=== PATIENT | male | born 1950 | race Caucasian/White ===

== ENCOUNTER → 2018-12-24 | Outpatient (CLI) | payer MEDICARE, BC ==
[2018-12-24 08:57] LABS: HEMATOCRIT 47 % (40-54); HEMOGLOBIN 15.7 G/DL (13.3-17.7); MEAN CORPUSCULAR HEMOGLOBIN 30 PG (25-34); MEAN CORPUSCULAR HGB CONC 34 G/DL (32-36); MEAN CORPUSCULAR VOLUME 90 FL (80-99); WHITE BLOOD COUNT 7.7 10^3/uL (4.3-11.0)
[2018-12-24 08:58] LABS: BASOPHILS % (AUTO) 1 % (0-10); EOSINOPHILS # (AUTO) 0.2 10^3/uL (0.0-0.3); EOSINOPHILS % (AUTO) 2 % (0-10); LYMPHOCYTES # (AUTO) 2.5 X 10^3 (1.0-4.0); LYMPHOCYTES % (AUTO) 32 % (12-44); MEAN PLATELET VOLUME 9.8 FL (7.4-10.4); MONOCYTES # (AUTO) 0.7 X 10^3 (0.0-1.0); MONOCYTES % (AUTO) 9 % (0-12); NEUTROPHILS # (AUTO) 4.3 X 10^3 (1.8-7.8); NEUTROPHILS % (AUTO) 56 % (42-75); PLATELET COUNT 241 10^3/uL (130-400); RED CELL DISTRIBUTION WIDTH 13.5 % (10.0-14.5)
[2018-12-24 09:50] LABS: POTASSIUM 3.4 MMOL/L (3.6-5.0)
[2018-12-24 09:51] LABS: BILIRUBIN,TOTAL 1.1 MG/DL (0.1-1.0); CALCIUM 9.6 MG/DL (8.5-10.1); CREATININE SERUM 1.49 MG/DL (0.60-1.30); TOTAL PROTEIN 7.2 GM/DL (6.4-8.2)
[2018-12-24 09:52] LABS: ALBUMIN 4.2 GM/DL (3.2-4.5)
[2018-12-24 15:31] LABS: CHOLESTEROL 212 MG/DL (< 200); HDL CHOLESTEROL 34 MG/DL (40-60); TRIGLYCERIDES 172 MG/DL (<150); VLDL CHOLESTEROL 34 MG/DL (5-40)
== END ==
LOC: LAB FS 08:07
PROVIDERS: ATTEND Family Medicine
DX: I12.9 Hypertensive chronic kidney disease with stage 1 through stage 4 chronic kidney disease, or unspecified chronic kidney disease (principal); N18.9 Chronic kidney disease, unspecified; E78.5 Hyperlipidemia, unspecified; R73.9 Hyperglycemia, unspecified
CPT/HCPCS: 36415; 80053; 80061; 83036; 85025

== ENCOUNTER → 2019-06-25 | Outpatient (CLI) | payer MEDICARE, BC ==
[~2019-06-25] MED LIST: ATOR40TA PO; HCT25T PO; LSRT50T PO; POTA10CA43 PO
[2019-06-25 16:31] LABS: HEMOGLOBIN 16.3 G/DL (13.3-17.7); MEAN PLATELET VOLUME 10.2 FL (7.4-10.4); RED CELL DISTRIBUTION WIDTH 14.2 % (10.0-14.5); WHITE BLOOD COUNT 7.6 10^3/uL (4.3-11.0)
[2019-06-25 16:32] LABS: BILIRUBIN,TOTAL 1.1 MG/DL (0.1-1.0); CALCIUM 9.7 MG/DL (8.5-10.1); CREATININE SERUM 1.55 MG/DL (0.60-1.30); POTASSIUM 3.1 MMOL/L (3.6-5.0); TOTAL PROTEIN 7.5 GM/DL (6.4-8.2)
[2019-06-25 16:33] LABS: ALBUMIN 4.5 GM/DL (3.2-4.5)
[2019-06-26 08:39] LABS: CHOLESTEROL 198 MG/DL (< 200); HDL CHOLESTEROL 38 MG/DL (40-60); TRIGLYCERIDES 190 MG/DL (<150); VLDL CHOLESTEROL 38 MG/DL (5-40)
== END ==
LOC: LAB FS 09:12
PROVIDERS: ATTEND Family Medicine
DX: I12.9 Hypertensive chronic kidney disease with stage 1 through stage 4 chronic kidney disease, or unspecified chronic kidney disease (principal); N18.3 Chronic kidney disease, stage 3 (moderate); E78.5 Hyperlipidemia, unspecified; R73.9 Hyperglycemia, unspecified
CPT/HCPCS: 36415; 80053; 80061; 83036; 85027

== ENCOUNTER → 2021-09-28 | Outpatient (CLI) | payer BC, MEDICARE | LOC: CARD 14:00 | PROVIDERS: ATTEND Family Medicine | DX: I08.0 Rheumatic disorders of both mitral and aortic valves (principal) | CPT/HCPCS: 93306 ==

== ENCOUNTER → 2021-10-06 | Outpatient (CLI) | payer MEDICARE ==
[2021-10-06 10:04] VITALS: BP 158/89
--- NOTE | 2021-10-06 11:30 | Cardiology Stress Test Report ---
Stress Test Report Date of Procedure/Referring: Date of Procedure: Oct 06, 2021 PCP Luis Nance Jr, MD Admitting Physician Thiago Dominguez MD Indications: Chest pain. Baseline Blood Pressure: Blood Pressure Systolic: 158 Blood Pressure Diastolic: 89 Baseline EKG: Baseline EKG: Sinus rhythm with occasional premature ventricular complexes. Summary/Conclusion: PROCEDURE: The patient was exercised for a total of 6 minutes and 57 seconds of the standard Soren protocol achieving a maximum MET level of 8.3. The resting heart rate was 66 bpm and the peak heart rate was 147 bpm, which represents 98% of the maximum predicted heart rate. The resting blood pressure was 156/89 mmHg and the peak blood pressure was 207/81 mmHg. This represents a normal heart rate and a hypertensive blood pressure response to exercise. The test was stopped due to fatigue. There was no exercise-induced chest discomfort. There were isolated premature ventricular complexes throughout the test. There were no significant stress-induced electrocardiogram changes. The patient exhibited good exercise capacity for age. IMPRESSION: 1. Normal heart rate and blood pressure response to exercise. 2. There was no exercise-induced chest discomfort. 3. There were isolated premature ventricular complexes throughout the duration of the test. 4. There were no significant stress induced electrocardiogram changes. 5. The patient exhibited good exercise capacity for age at 6 minutes and 57 seconds of the Soren protocol. 6. This is a negative exercise treadmill test representing low risk for future cardiac ischemic events. Certain portions of this document may have been dictated utilizing voice recognition technology. Inherent to this technology, typographical and grammatical errors may exist. As much as I am diligent to identify and correct these mistakes, some errors may remain in the document. LUIS NANCE JR, MD Oct 06, 2021 11:30
== END ==
LOC: CARD 10:00
PROVIDERS: ATTEND Internal Medicine Cardiovascular Disease
DX: R07.9 Chest pain, unspecified (principal)
CPT/HCPCS: 93017

== ENCOUNTER 2022-12-15 01:26 | Emergency (ER) | payer MEDICARE ==
--- NOTE | 2022-12-15 01:57 | ED Fall/Injury ---
General Chief Complaint: Laceration Stated Complaint: FELL,HIT HEAD Nursing Triage Note: Pt states he rolled out of bed tonight and hit his head. Pt denies loc. Pt presents with a small lac to the right side of his head Source: patient Exam Limitations: no limitations History of Present Illness Date Seen by Provider: Dec 15, 2022 Time Seen by Provider: 01:31 Initial Comments 72-year-old male with past medical history of paroxysmal A-fib only on aspirin and diltiazem coming in after he was an active sleeper, rolled out of bed, hit the right lateral posterior aspect of his head on something he is unsure of on the way down. It immediately woke him up and he noticed bleeding and a laceration to his scalp. Has a very mild headache. Otherwise denies any other acute complaints including any neck pain or back pain. Has been ambulatory since the incident. Last tetanus shot less than 5 years ago. Allergies and Home Medications Allergies Coded Allergies: No Known Drug Allergies (Unverified , 08/16/10) Patient Home Medication List Home Medication List Reviewed: Yes Atorvastatin Calcium (Lipitor 40MG) 40 Mg Tablet, 1 EACH PO HS, (Reported) Entered as Reported by: LORENA ABDUL on 08/16/10 162 Hydrochlorothiazide (Hctz) 25 Mg Tab, 25 MG PO DAILY, (Reported) Entered as Reported by: LORENA ABDUL on 08/16/101621 Losartan Potassium (Cozaar) 50 Mg Tab, 100 MG PO DAILY, (Reported) Entered as Reported by: LORENA ABDUL on 08/16/10 162 Potassium Chloride (Potassium Chloride 10 Meq Cap) 10 Meq Capsule.sa, 1 EACH PO DAILY WITH FOOD, (Reported) Entered as Reported by: LORENA ABDUL on 08/16/101621 Review of Systems Review of Systems Constitutional: No fever Eyes: No Symptoms Reported Ears, Nose, Mouth, Throat: no symptoms reported Respiratory: no symptoms reported Cardiovascular: no symptoms reported Gastrointestinal: no symptoms reported Genitourinary: no symptoms reported Musculoskeletal: no symptoms reported Skin: see HPI Psychiatric/Neurological: No Symptoms Reported All Other Systems Reviewed Negative Unless Noted: Yes Past Khzkqfg-Hzoecp-Gzlplm Hx Patient Social History Tobacco Use?: No Use of E-Cig and/or Vaping dev: No Substance use?: No Alcohol Use?: No Pt feels they are or have been: No Past Medical History Reproductive Disorders: No Physical Exam Vital Signs Vital Signs - First Documented 12/15/22 01:29 Temp 36.6 Pulse 72 Resp 16 B/P (MAP) 165/106 (125) Pulse Ox 96 O2 Delivery Room Air Capillary Refill : Less Than 3 Seconds Height, Weight, BMI Height: '" Weight: lbs. oz. kg; BMI Method: General Appearance: WD/WN, no apparent distress HEENT: PERRL/EOMI, pharynx normal, other (2 cm laceration to the right lateral occiput that is superficial) Neck: non-tender, full range of motion, supple, normal inspection Cardiovascular: regular rate, rhythm, no edema, no murmur Respiratory: chest non-tender, lungs clear, normal breath sounds, no respiratory distress, no accessory muscle use Gastrointestinal: normal bowel sounds, non tender, soft; No distended, No guarding, No rebound Back: normal inspection, no vertebral tenderness Extremities: normal range of motion, non-tender, normal inspection, no pedal edema, no calf tenderness, normal capillary refill Neurologic/Psychiatric: no motor/sensory deficits, alert, normal mood/affect, oriented x 3 Skin: normal color, warm/dry Lymphatic: no adenopathy [place] Coma Score Best Eye Response: (4) Open Spontaneously Best Verbal Response: (5) Oriented Best Motor Response: (6) Obeys Commands Procedures/Interventions Wound Location: Scalp Other Wound Location right lateral posterior Wound Length (cm): 2 Wound's Depth, Shape: superficial Wound Explored: clean Irrigated w/ Saline (ccs): 400 Other Closure Supply: Wound Adhesive Progress Hair apposition technique utilized with Dermabond with good wound apposition. Patient tolerated the procedure well. Progress/Results/Core Measures Results/Orders My Orders Orders - REJI JUÁREZ MD Ct Head Wo (12/15/22 01:51) Vital Signs/I&O 12/15/22 12/15/22 01:29 02:14 Temp 36.6 36.6 Pulse 72 72 Resp 16 16 B/P (MAP) 165/106 (125) 165/106 Pulse Ox 96 96 O2 Delivery Room Air Room Air 2 Blood Pressure Mean: 125 Progress Progress Note : Progress Note 72-year-old male presenting after rolling out of bed and hitting his head with a small laceration to his occiput. ABCs were intact, vital signs stable, GCS 15, Tdap up-to-date on arrival. The wound was cleaned and closed with hair apposition technique and Dermabond. CT head ordered and interpreted by me showing no obvious skull fracture and no obvious intracranial hemorrhage. He is not having any cervical spine tenderness, no pain anywhere else, normal range of motion of neck, no weakness or numbness, and he has been ambulatory since the incident. I believe he is otherwise stable for discharge with outpatient follow-up. He was sent home with strict return precautions. Of note, the patient did not want to wait for the formal CT head results from stat rad. I discussed that I am not seeing any obvious bleeding or concerns, but that I would recommend waiting for their read. He states he wants to go home right now and wants to be called with the results. I discussed that he could have a brain bleed that is subtle but I missed. I discussed if this were the case, I would want him to come back to be admitted to a trauma facility to have a neurosurgical consult. He is agreeable to this. He does have capacity at this time to make this decision based on my evaluation and is having no symptoms at this time such as headache, no confusion, no neuro changes whatsoever. He is able to verbalize the risk and benefits of this decision. Diagnostic Imaging Diagonstic Imaging: CT (head) Departure Impression Primary Impression: Scalp laceration Qualified Codes: S01.01XA - Laceration without foreign body of scalp, initial encounter Disposition: 01 HOME, SELF-CARE Condition: Stable Departure-Patient Inst. Decision time for Depature: 02:16 Referrals: CARLA OCHOA MD (PCP/Family) Primary Care Physician Patient Instructions: Laceration Repair With Glue ED Add. Discharge Instructions: Do not let the area of the laceration get wet for the next 24 hours. After that water can run over it briefly in the shower but do not scrub it. After 1 week you can return to normal activity and you can allow the glue to naturally fall out of your hair. If it has not come out naturally and 10 days then you can scrub at it harder to help get it out. Take Tylenol as needed for headache. We will call you with the results to the CT head. If they see any concerning findings, although very unlikely, we would need you to come back to the ER. REJI JUÁREZ MD Dec 15, 2022 01:56
[2022-12-15 02:14] VITALS: BP 165/106
--- NOTE | 2022-12-15 03:29 | Diagnostic Imaging Report ---
PROCEDURE: CT head without contrast. TECHNIQUE: Multiple contiguous axial images were obtained through the brain without the use of intravenous contrast. Auto Exposure Controls were utilized during the CT exam to meet ALARA standards for radiation dose reduction. INDICATION: Head injury from a fall The ventricles are normal in size, shape and position. There are no masses or hemorrhages. There are no extra-axial fluid collections. There are no skull fractures seen. Paranasal sinuses are clear. IMPRESSION: Negative CT head I agree with preliminary interpretation. Dictated by: Dictated on workstation # [id number]
== END 2022-12-15 02:17 | disposition home or self-care (01) ==
LOC: EDUNIT# 01:26 → ER FS 01:27
DX: S01.01XA Laceration without foreign body of scalp, initial encounter (principal); R40.2362 Coma scale, best motor response, obeys commands, at arrival to emergency department; R40.2142 Coma scale, eyes open, spontaneous, at arrival to emergency department; R40.2252 Coma scale, best verbal response, oriented, at arrival to emergency department; I48.0 Paroxysmal atrial fibrillation; Z79.82 Long term (current) use of aspirin; Z79.899 Other long term (current) drug therapy; Z28.310 Unvaccinated for COVID-19; W06.XXXA Fall from bed, initial encounter; W22.8XXA Striking against or struck by other objects, initial encounter
CPT/HCPCS: 70450

== ENCOUNTER 2022-12-18 11:58 | Emergency (ER) | payer MEDICARE ==
[~2022-12-18] VITALS: Ht 168 cm; Wt 104.0 kg
--- NOTE | 2022-12-18 12:22 | ED General ---
General Chief Complaint: Respiratory Problems Stated Complaint: HIGH BLOOD PRESSURE | AFIB Source of Information: Patient Exam Limitations: No Limitations History of Present Illness Date Seen by Provider: Dec 18, 2022 Time Seen by Provider: 11:40 Initial Comments 72yoM with PMH of pAfib on diltiazem (diagnosed recently) coming in due to 2-3 days of chest pain and SOB. Patient was diagnosed with A-fib a couple weeks ago, started on diltiazem and daily aspirin. He has been more symptomatic with it, feels his heart racing sometimes, sometimes having chest discomfort and shortness of breath. This seems to really come and go intermittently. Denies any fever, weakness, numbness, headache, vision changes, or any other concerns. Has taken all of his medicines today including his baby aspirin. Denies any prior history of DVT or PE. Denies any prior CAD. Allergies and Home Medications Allergies Coded Allergies: No Known Drug Allergies (Unverified , 08/16/10) Patient Home Medication List Home Medication List Reviewed: Yes Atorvastatin Calcium (Lipitor 40MG) 40 Mg Tablet, 1 EACH PO HS, (Reported) Entered as Reported by: LORENA ABDUL on 08/16/101621 Hydrochlorothiazide (Hctz) 25 Mg Tab, 25 MG PO DAILY, (Reported) Entered as Reported by: LORENA ABDUL on 08/16/10 162 Losartan Potassium (Cozaar) 50 Mg Tab, 100 MG PO DAILY, (Reported) Entered as Reported by: LORENA ABDUL on 08/16/10 162 Potassium Chloride (Potassium Chloride 10 Meq Cap) 10 Meq Capsule.sa, 1 EACH PO DAILY WITH FOOD, (Reported) Entered as Reported by: LORENA ABDUL on 08/16/101621 Review of Systems Review of Systems Constitutional: No fever EENTM: no symptoms reported Respiratory: see HPI Cardiovascular: see HPI Gastrointestinal: no symptoms reported Genitourinary: no symptoms reported Musculoskeletal: no symptoms reported Skin: no symptoms reported Psychiatric/Neurological: No Symptoms Reported Hematologic/Lymphatic: No Symptoms Reported Immunological/Allergic: no symptoms reported All Other Systems Reviewed Negative Unless Noted: Yes Past Vyhemvs-Rkhkmq-Wwcjxh Hx Patient Social History Tobacco Use?: No Past Medical History Surgeries: No Reproductive Disorders: No Physical Exam Vital Signs Vital Signs - First Documented 12/18/22 12:04 Temp 36.2 Pulse 111 Resp 18 B/P (MAP) 180/141 (154) Pulse Ox 97 O2 Delivery Room Air Capillary Refill : Height, Weight, BMI Height: '" Weight: lbs. oz. kg; BMI Method: General Appearance: No Apparent Distress, WD/WN Eyes: Bilateral Eye Normal Inspection HEENT: PERRL/EOMI, Normal ENT Inspection, Pharynx Normal Neck: Full Range of Motion, Normal Inspection, Non Tender, Supple Respiratory: Chest Non Tender, Lungs Clear, Normal Breath Sounds, No Accessory Muscle Use, No Respiratory Distress Cardiovascular: No Edema, Normal Peripheral Pulses, Irregularly Irregular, Tachycardia Gastrointestinal: Normal Bowel Sounds, Non Tender, Soft; No Distended, No Guarding Back: Normal Inspection, No CVA Tenderness Extremity: Normal Capillary Refill, Normal Inspection, Normal Range of Motion, Non Tender, No Calf Tenderness, No Pedal Edema Neurologic/Psychiatric: Alert, No Motor/Sensory Deficits, Normal Mood/Affect Skin: Normal Color, Warm/Dry Lymphatic: No Adenopathy Progress/Results/Core Measures Suspected Sepsis SIRS Temperature: Pulse: Respiratory Rate: Laboratory Tests 12/18/22 12:33: White Blood Count 9.8 Blood Pressure / Mean: Laboratory Tests 12/18/22 12:33: Creatinine 1.52H, INR Comment 1.0, Platelet Count 229, Total Bilirubin 1.8H Results/Orders Lab Results Laboratory Tests Test 12/18/22 12:33 Range/Units White Blood Count 9.8 4.3-11.0 10^3/uL Red Blood Count 5.88 H 4.30-5.52 10^6/uL Hemoglobin 17.9 H 13.3-17.7 g/dL Hematocrit 52 40-54 % Mean Corpuscular Volume 89 80-99 fL Mean Corpuscular Hemoglobin 30 25-34 pg Mean Corpuscular Hemoglobin Concent 34 32-36 g/dL Red Cell Distribution Width 13.5 10.0-14.5 % Platelet Count 229 130-400 10^3/uL Mean Platelet Volume 10.0 9.0-12.2 fL Immature Granulocyte % (Auto) 0 % Neutrophils (%) (Auto) 71 42-75 % Lymphocytes (%) (Auto) 18 12-44 % Monocytes (%) (Auto) 9 0-12 % Eosinophils (%) (Auto) 1 0-10 % Basophils (%) (Auto) 0 0-10 % Neutrophils # (Auto) 7.0 1.8-7.8 10^3/uL Lymphocytes # (Auto) 1.7 1.0-4.0 10^3/uL Monocytes # (Auto) 0.9 0.0-1.0 10^3/uL Eosinophils # (Auto) 0.1 0.0-0.3 10^3/uL Basophils # (Auto) 0.0 0.0-0.1 10^3/uL Immature Granulocyte # (Auto) 0.0 0.0-0.1 10^3/uL Prothrombin Time 13.3 12.2-14.7 SEC INR Comment 1.0 0.8-1.4 Activated Partial Thromboplast Time 30 24-35 SEC D-Dimer 0.29 0.00-0.49 UG/ML Sodium Level 138 135-145 MMOL/L Potassium Level 3.7 3.6-5.0 MMOL/L Chloride Level 106 98-107 MMOL/L Carbon Dioxide Level 22 21-32 MMOL/L Anion Gap 10 5-14 MMOL/L Blood Urea Nitrogen 18 7-18 MG/DL Creatinine 1.52 H 0.60-1.30 MG/DL Estimat Glomerular Filtration Rate 49 BUN/Creatinine Ratio 12 Glucose Level 101 70-105 MG/DL Calcium Level 9.4 8.5-10.1 MG/DL Corrected Calcium 9.2 8.5-10.1 MG/DL Magnesium Level 2.3 1.6-2.4 MG/DL Total Bilirubin 1.8 H 0.1-1.0 MG/DL Aspartate Amino Transf (AST/SGOT) 28 5-34 U/L Alanine Aminotransferase (ALT/SGPT) 42 0-55 U/L Alkaline Phosphatase 109 40-136 U/L Troponin I < 0.028 <0.028 NG/ML B-Type Natriuretic Peptide 74.0 <100.0 PG/ML Total Protein 7.6 6.4-8.2 GM/DL Albumin 4.2 3.2-4.5 GM/DL Lipase 27 8-78 U/L My Orders Orders - REJI JUÁREZ MD Cbc With Automated Diff (12/18/22 12:30) Magnesium (12/18/22 12:30) Chest 1 View, Ap/Pa Only (12/18/22 12:30) Ekg Tracing (12/18/22 12:30) Comprehensive Metabolic Panel (12/18/22 12:30) Protime With Inr (12/18/22 12:30) Partial Thromboplastin Time (12/18/22 12:30) O2 (12/18/22 12:30) Monitor-Rhythm Ecg Trace Only (12/18/22 12:30) Ed Iv/Invasive Line Start (12/18/22 12:30) Lipase (12/18/22 12:30) Bnp [place] (12/18/22 12:30) Fibrin Degradation Products (12/18/22 12:30) Troponin I Pat (12/18/22 12:30) Aspirin Chewable Tablet (Baby Aspirin Ch (12/18/22 12:30) Lidocaine 2% Viscous 15 Ml (Xylocaine Vi (12/18/22 12:30) Famotidine Tablet (Pepcid Tablet) (12/18/22 12:30) Antacid Suspension (Mylanta Suspension (12/18/22 12:30) Diltiazem Cd 24 Hr Capsule (Cardizem Cd (12/18/22 12:30) Medications Given in ED Current Medications Medications Dose Ordered Sig/Bobby Route Start Time Stop Time Status Last Admin Dose Admin Al Hydrox/Mg Hydrox/Simethicone 30 ml ONCE ONCE PO 12/18/22 12:30 12/18/22 12:33 DC 12/18/22 12:51 30 ML Aspirin 162 mg ONCE ONCE PO 12/18/22 12:30 12/18/22 12:33 DC 12/18/22 12:50 162 MG Diltiazem HCl 120 mg ONCE ONCE PO 12/18/22 12:30 12/18/22 12:33 DC 12/18/22 12:51 120 MG Lidocaine HCl 15 ml ONCE ONCE PO 12/18/22 12:30 12/18/22 12:33 DC 12/18/22 12:52 15 ML Vital Signs/I&O 12/18/22 12:04 Temp 36.2 Pulse 111 Resp 18 B/P (MAP) 180/141 (154) Pulse Ox 97 O2 Delivery Room Air Capillary Refill : Progress Note : Progress Note 72-year-old male with above history coming in due to shortness of breath and chest discomfort. ABCs were intact and vitals were stable on presentation although he is in A-fib, intermittently in RVR. Most the time his heart rate is around 110, gets up to the 120s for short burst of time. He is symptomatic during that time. An IV was placed and basic labs were obtained including cardiac biomarkers. Troponin negative, BNP normal, D-dimer within normal limits. Chest x-ray ordered and interpreted by me showing no pneumonia, no pneumothorax, no obvious pulmonary edema or vascular congestion. I reviewed the patient's work-up in the past with cardiology, and it was noted that he had a normal ejection fraction on his echo within the past year and a normal stress test as well. Given this is relatively new A-fib, he is symptomatic with it, his [id number] score is 2, I discussed that he may prefer to have a chance to get out of A-fib and get cardioverted. He does want this. I discussed he would need to be on anticoagulation if this were the case. I will start him on Eliquis, stop his aspirin, and have him follow-up with Dr. Montero as an outpatient. He was given oral diltiazem here, heart rate controlled in the 90s and he is feeling better. I believe he is otherwise stable for discharge with outpatient follow-up. He was sent home with strict return precautions. ECG Initial ECG Impression Date: Dec 18, 2022 Initial ECG Impression Time: 12:09 Initial ECG Rate: 102 Initial ECG Rhythm: A Fib/Flutter Comment Borderline wide QRS with a right bundle lucy block, A-fib, left anterior fascicular block, no STEMI Diagnostic Imaging Diagonstic Imaging: Xray (chest) Departure Impression Primary Impression: Atrial fibrillation with RVR Disposition: 01 HOME, SELF-CARE Condition: Stable Departure-Patient Inst. Decision time for Depature: 13:53 Referrals: MARIELLA MONTERO MD, CHAD C MD (PCP/Family) Primary Care Physician Patient Instructions: Atrial Fibrillation and Atrial Flutter ED Add. Discharge Instructions: When your symptoms are getting worse, it is correlating with your A-fib being more out of control and your heart rate being faster. Your diltiazem is what is helping with this. We recommend being on a blood thinner, Eliquis twice a day. Follow-up with Dr. Montero, the timing adjuster. You can discuss with him cardioversion, this is when they [place] you to try to get you out of A-fib. It may not be possible for you to get out of A-fib, but you can at least discuss this option with him. If you have severe chest pain, severe shortness of breath, I would want you to come back to the ER. Once you start the Eliquis, you can stop the aspirin. Continue to take the diltiazem. Scripts Apixaban (Eliquis) 5 Mg Tablet 5 MG PO BID for 30 Days, #60 TAB Prov: REJI JUÁREZ MD 12/18/22 REJI JUÁREZ MD Dec 18, 2022 12:22
[2022-12-18] MEDS ORDERED: LIDOCAINE 2% VISCOUS 15 ML UDC PO ONE (12:30)
[2022-12-18] MEDS ORDERED: ANTACID SUSP 30 ML UDC (MYLANTA) PO ONE (12:30)
[2022-12-18] MEDS ORDERED: ASPIRIN 81 MG CHEW (CHILDREN'S ASA) PO ONE (12:30)
[2022-12-18] MEDS ORDERED: dilTIAZem120 MG (CARDIZEM CD) CAP PO ONE (12:30)
[2022-12-18] MEDS ORDERED: FAMOTIDINE 20 MG (PEPCID) TABLET PO STA (12:30)
[2022-12-18 12:43] LABS: BASOPHILS % (AUTO) 0 % (0-10); EOSINOPHILS # (AUTO) 0.1 10^3/uL (0.0-0.3); EOSINOPHILS % (AUTO) 1 % (0-10); HEMATOCRIT 52 % (40-54); HEMOGLOBIN 17.9 g/dL (13.3-17.7); LYMPHOCYTES # (AUTO) 1.7 10^3/uL (1.0-4.0); LYMPHOCYTES % (AUTO) 18 % (12-44); MEAN CORPUSCULAR HEMOGLOBIN 30 pg (25-34); MEAN CORPUSCULAR HGB CONC 34 g/dL (32-36); MEAN CORPUSCULAR VOLUME 89 fL (80-99); MONOCYTES # (AUTO) 0.9 10^3/uL (0.0-1.0); MONOCYTES % (AUTO) 9 % (0-12); NEUTROPHILS % (AUTO) 71 % (42-75); PLATELET COUNT 229 10^3/uL (130-400); WHITE BLOOD COUNT 9.8 10^3/uL (4.3-11.0)
[2022-12-18 12:51] LABS: ALBUMIN 4.2 GM/DL (3.2-4.5)
[2022-12-18 12:52] LABS: POTASSIUM 3.7 MMOL/L (3.6-5.0)
[2022-12-18 12:53] LABS: CALCIUM 9.4 MG/DL (8.5-10.1)
[2022-12-18 12:54] LABS: TOTAL PROTEIN 7.6 GM/DL (6.4-8.2)
[2022-12-18 12:55] LABS: PROTHROMBIN TIME PATIENT 13.3 SEC (12.2-14.7)
[2022-12-18 12:56] LABS: BILIRUBIN,TOTAL 1.8 MG/DL (0.1-1.0)
[2022-12-18 12:58] LABS: CREATININE SERUM 1.52 MG/DL (0.60-1.30)
[2022-12-18 13:00] LABS: MAGNESIUM 2.3 MG/DL (1.6-2.4)
[2022-12-18] MEDS ORDERED: APIX5TAB PO (13:55)
[2022-12-18 14:00] VITALS: BP 136/98
--- NOTE | 2022-12-18 14:11 | Diagnostic Imaging Report ---
INDICATION: Chest pain, hypertension. TECHNIQUE: Frontal chest obtained at 01:08 p.m. FINDINGS: There is cardiomegaly. There is no focal infiltrate or pneumothorax or pleural fluid. IMPRESSION: Cardiomegaly. No focal infiltrate or pneumothorax or pleural fluid. Dictated by: Dictated on workstation # [id number]
== END 2022-12-18 14:05 | disposition home or self-care (01) ==
LOC: EDUNIT# 11:58 → ER 11:59
DX: I48.0 Paroxysmal atrial fibrillation (principal); Z79.82 Long term (current) use of aspirin; Z79.899 Other long term (current) drug therapy
CPT/HCPCS: 36415; 71045; 80053; 83690; 83735; 83880; 84484; 85025; 85379; 85610; 85730; 93005; 93041

== ENCOUNTER 2022-12-22 07:48 | Day surgery (SDC) | payer MEDICARE ==
[~2022-12-22] VITALS: Ht 185.4 cm; Wt 104.0 kg
[2022-12-22] VITALS (9 sets, daily range): BP systolic 129–172; BP diastolic 74–106
[~2022-12-22 07:48] MED LIST changes: +APIX5TAB PO
[2022-12-22] MEDS ORDERED: LIDOCAINE 2% VISCOUS 15 ML UDC PO ONE (08:00)
[2022-12-22] MEDS ORDERED: NS IV 1000 ML 1,000 ML IV SCH ×2 (08:00→12:00)
[2022-12-22 08:39] LABS: HEMATOCRIT 53 % (40-54); HEMOGLOBIN 18.4 g/dL (13.3-17.7); MEAN CORPUSCULAR HEMOGLOBIN 31 pg (25-34); MEAN CORPUSCULAR HGB CONC 35 g/dL (32-36); MEAN CORPUSCULAR VOLUME 88 fL (80-99); MEAN PLATELET VOLUME 9.8 fL (9.0-12.2); PLATELET COUNT 220 10^3/uL (130-400); WHITE BLOOD COUNT 10.4 10^3/uL (4.3-11.0)
[2022-12-22 08:39] LABS: BILIRUBIN,URINE NEGATIVE (NEGATIVE); CLARITY,URINE SL CLOUDY; COLOR,URINE YELLOW; GLUCOSE, URINE (UA) NEGATIVE (NEGATIVE); KETONES,URINE NEGATIVE (NEGATIVE); LEUKOCYTE ESTERASE ,URINE NEGATIVE (NEGATIVE); NITRITE,URINE NEGATIVE (NEGATIVE); PROTEIN,URINE 1+ (NEGATIVE)
[2022-12-22] MEDS ORDERED: DILT120C47 PO (08:39)
[2022-12-22] MEDS ORDERED: LOSA100T57 PO (08:42)
[2022-12-22] MEDS ORDERED: SIMV10TA26 PO (08:44)
[2022-12-22 08:54] LABS: INR 1.1 (0.8-1.4); PROTHROMBIN TIME PATIENT 14.9 SEC (12.2-14.7)
[2022-12-22 08:55] LABS: BACTERIA,URINE TRACE /HPF; RBC,URINE 0-2 /HPF
[2022-12-22 08:56] LABS: HYALINE CASTS, URINE 25-50 /LPF
[2022-12-22 09:00] LABS: ALBUMIN 4.2 GM/DL (3.2-4.5); BILIRUBIN,TOTAL 1.8 MG/DL (0.1-1.0); CALCIUM 9.8 MG/DL (8.5-10.1); CREATININE SERUM 1.61 MG/DL (0.60-1.30); POTASSIUM 3.2 MMOL/L (3.6-5.0); TOTAL PROTEIN 7.4 GM/DL (6.4-8.2)
--- NOTE | 2022-12-22 09:04 | Diagnostic Imaging Report ---
CHEST 1 VIEW, AP/PA ONLY Indication: Atrial fibrillation Comparison: 12/18/2022 Findings: No focal airspace disease in the visualized lungs. No pleural effusion or pneumothorax. Stable enlargement of cardiac silhouette. Mediastinal contours are normal. Impression: 1. No acute cardiopulmonary process by portable radiography. Dictated by: Dictated on workstation # [id number]
[2022-12-22] MEDS ORDERED: NS IV 1000 ML 1,000 ML ONE (10:08)
[2022-12-22] MEDS ORDERED: LIDOCAINE 2% VISCOUS 15 ML UDC ONE (10:08)
[2022-12-22] MEDS ORDERED: POTASSIUM CL 10MEQ/50ML IVPB 50 ML IV SCH (10:15)
--- NOTE | 2022-12-22 10:18 | Cardiac Procedure Note-CS/ASA ---
Pre-Procedure Note Pre-Op Procedure Note Date of Available H&P: Dec 19, 2022 Date H&P Reviewed: Dec 22, 2022 Time H&P Reviewed: 10:00 History & Physical: H&P Reviewed, Patient Examed, No changes noted Pre-Operative Diagnosis: Atrial fibrillation. Conscious Sedation Pre-Proced Time 10:00 ASA Score 3 For ASA 3 and 4: Consider anesthesia and medical clearance. Also, for patients with a history of failed moderate sedation consider anesthesia. Airway Lungs Heart ASA score ASA 1: a normal healthy patient ASA 2: a patient with a mild systemic disease (mid diabetes, controlled hypertension, obesity ASA 3: a patient with a severe systemic disease that limits activity (angina, COPD, prior Myocardial infarction) ASA 4: a patient with an incapacitating disease that is a constant threat to life (CHF, renal failure) ASA 5: a moribund patient not expected to survive 24 hrs. (ruptured aneurysm) ASA 6: a declared brain- patient whose organs are being harvested. For emergent operations, add the letter E after the classification Mallampati Classification Grade 3 Sedation Plan Analgesia, Amnesia, Plan communicated to team members, Discussed options with patient/fam, Discussed risks with patient/fam The patient is an appropriate candidate to undergo the planned procedure, sedation, and anesthesia. The patient immediately re-assessed prior to indication. MARIELLA GILL MD Dec 22, 2022 10:18
[2022-12-22] MEDS ORDERED: proPOfol 200 MG/20 ML (DIPRIVAN) VIAL IV ONE (10:33)
[2022-12-22] MEDS ORDERED: MIDAZOLAM 2 MG/2 ML (VERSED) VIAL ONE (10:33)
--- NOTE | 2022-12-22 11:06 | Cardioversion ---
Cardioversion PROCEDURE PHYSICIAN: Mariella Montero DATE OF PROCEDURE: 12/22/22 DIRECT EXTERNAL ELECTRICAL CARDIOVERSION: Indications: Atrial Fibrillation with rapid ventricular rate Preoperative diagnoses: Atrial Fibrillation with rapid ventricular rate Postoperative diagnosis: Sinus rhythm, Successful Electrical Cardioversion History: 72-year-old gentleman with atrial fibrillation of unknown duration, increasing dyspnea, hypertension and hyperlipidemia. Scheduled for LOW with electrical cardioversion Anesthesia: By Anesthesia services Complications: None Specimen: None Contrast: 0 Flouroscopy: none Procedure Details: The patient was brought the label pinker after informed consent was taken, all the risks and complications were explained including the risk of stroke. Electrical cardioversion was carried out with anesthesia support with propofol. 200 joules of synchronized shock was delivered through external patches which promptly restored sinus rhythm. The patient tolerated the procedure well. Conclusions: Successful electrical cardioversion terminating atrial fibrillation Final Diagnosis: Paroxysmal atrial fibrillation Dyspnea Hypertension Hyperlipidemia MARIELLA MONTERO MD Dec 22, 2022 11:06
[2022-12-22] MEDS ORDERED: AMIO200T65 PO (11:08)
--- NOTE | 2022-12-22 11:08 | Discharge Inst-Post CATH ---
Discharge Inst-CATH/EP Problems Reviewed?: Yes Post Cardiac Cath/EP D/C Inst Follow Up/Plan Appointment with Dr. Montero's office in 2 to 4 weeks <b>CARDIAC CATH/EP PROCEDURE DISCHARGE INSTRUCTIONS</b> ACTIVITY * Go Home directly and rest. * Limit activity of the leg (or wrist if it was used) for 7 days including aer obics, swimming, jogging, bicycling, etc. * Restrict stair-climbing for 7 days if possible, if not, climb up with your non-cath leg, then bring together on the same step. * Avoid lifting, pushing, pulling or excessive movement of the affected extremi ty for 7 days. * Customary sexual activity may be resumed after 2 days-use caution not to use a position that strains or causes pain to the affected extremity. * No driving for 24 hours. * NO SMOKING. * Avoid straining for bowel movements for 7 days. * Gentle walking on level ground is allowed. * Returning to work will depend on the type of procedure and the results. Your doctor will discuss this with you. CALL YOUR DOCTOR FOR ANY OF THE FOLLOWING: *If bleeding from the puncture site occurs- Apply gentle pressure to site with clean cloth and call your doctor or EMS. * If a knot or lump forms under the skin, increases in size, or causes pain. * If bruising appears to be worsening or moving further down your leg instead of disappearing. * Temperature above 101 F. CARE OF YOUR GROIN INCISION; * Bruising or purple discoloration of the skin near the puncture site is common. * You may shower only, no bathtub bathing for 5 days. Be careful to avoid slipping as your leg may feel stiff. * If a closure device was used on your femoral artery, please see the attached guide regarding care of the device and your leg. * Leave dressing on FOR 24 hours. CARE OF YOUR WRIST INCISION; * Bruising or purple discoloration of the skin near the puncture site is common. * You may shower. * DO NOT submerge wrist. * Leave dressing on FOR 24 hours. MARIELLA MONTERO MD Dec 22, 2022 11:08
[2022-12-22] MEDS ORDERED: LOSARTAN 100 MG (COZAAR) TABLET PO SCH (11:15)
[2022-12-22] MEDS ORDERED: APIXABAN 5 MG (ELIQUIS) TABLET PO SCH ×2 (11:15→21:00)
[2022-12-22] MEDS ORDERED: AMIODARONE FOR BOLUS 150 MG in NS (IVPB) 100 ML IV NR (12:00)
[2022-12-22] MEDS ORDERED: PATIENT MAY USE OWN MEDS, ALL PO SCH (12:00)
[2022-12-22] MEDS ORDERED: KCL 20 MEQ TAB (K-DUR) PO ONE (13:30)
[2022-12-22] MEDS ORDERED: dilTIAZem120 MG (CARDIZEM CD) CAP PO SCH (14:00)
--- NOTE | 2022-12-22 14:07 | Anesthesia-General Post-Op ---
MAC Patient Condition Mental Status/LOC: Same as Preop Cardiovascular: Satisfactory Nausea/Vomiting: Absent Respiratory: Satisfactory Pain: Controlled Complications: Absent Post Op Complications Complications None Follow Up Care/Instructions Patient Instructions None needed. Anesthesiology Discharge Order Discharge Order Patient is doing well, no complaints, stable vital signs, no apparent adverse anesthesia problems. No complications reported per nursing. PARISA JUAN CRNA Dec 22, 2022 14:07
[2022-12-22] MEDS ORDERED: AtorvaSTATin TABLET 10 MG TABLET PO ONE (21:00)
[2022-12-23] MEDS ORDERED: LOSARTAN 100 MG (COZAAR) TABLET PO SCH (09:00)
[2022-12-23] MEDS ORDERED: NON-FORMULARY MEDICATION 1 EA EA (Diltiazem HCl (Dilt-Xr) 120 MG) PO SCH (09:00)
== END 2022-12-22 14:35 | disposition home or self-care (01) ==
LOC: CATH 07:48 → SDC 13:12 → CATH 14:35
PROVIDERS: ATTEND Internal Medicine Cardiovascular Disease
DX: I48.0 Paroxysmal atrial fibrillation (principal); R06.00 Dyspnea, unspecified; I10 Essential (primary) hypertension; E78.2 Mixed hyperlipidemia; I34.0 Nonrheumatic mitral (valve) insufficiency; E66.9 Obesity, unspecified; R53.83 Other fatigue; I25.10 Atherosclerotic heart disease of native coronary artery without angina pectoris; I65.23 Occlusion and stenosis of bilateral carotid arteries; Z68.30 Body mass index [BMI] 30.0-30.9, adult; Z79.899 Other long term (current) drug therapy; Z79.01 Long term (current) use of anticoagulants
CPT/HCPCS: 36415; 71045; 80053; 80061; 81000; 83735; 85027; 85610; 85730; 87081; 92960; 93005; 93312

== ENCOUNTER 2022-12-24 09:58 | Emergency (ER) | payer MEDICARE ==
[~2022-12-24 09:58] MED LIST changes: +AMIO200T65 PO; +DILT120C47 PO; +LOSA100T57 PO; +SIMV10TA26 PO
[2022-12-24] MEDS ORDERED: FAMOTIDINE 20 MG (PEPCID) TABLET PO STA (10:07)
[2022-12-24 10:12] LABS: BASOPHILS # (AUTO) 0.1 10^3/uL (0.0-0.1); BASOPHILS % (AUTO) 1 % (0-10); EOSINOPHILS # (AUTO) 0.1 10^3/uL (0.0-0.3); EOSINOPHILS % (AUTO) 1 % (0-10); HEMATOCRIT 49 % (40-54); HEMOGLOBIN 17.1 g/dL (13.3-17.7); LYMPHOCYTES # (AUTO) 2.3 10^3/uL (1.0-4.0); LYMPHOCYTES % (AUTO) 17 % (12-44); MEAN CORPUSCULAR HEMOGLOBIN 31 pg (25-34); MEAN CORPUSCULAR HGB CONC 35 g/dL (32-36); MEAN CORPUSCULAR VOLUME 88 fL (80-99); MEAN PLATELET VOLUME 9.8 fL (9.0-12.2); MONOCYTES # (AUTO) 0.9 10^3/uL (0.0-1.0); MONOCYTES % (AUTO) 7 % (0-12); NEUTROPHILS # (AUTO) 9.6 10^3/uL (1.8-7.8); NEUTROPHILS % (AUTO) 74 % (42-75); PLATELET COUNT 209 10^3/uL (130-400)
[2022-12-24] MEDS ORDERED: LIDOCAINE 2% VISCOUS 15 ML UDC PO ONE (10:15)
[2022-12-24] MEDS ORDERED: ASPIRIN 81 MG CHEW (CHILDREN'S ASA) PO ONE (10:15)
[2022-12-24] MEDS ORDERED: NITROGLYCERIN 2% OINT 1 GM UNIT DOSE PACKET TOP ONE (10:15)
[2022-12-24] MEDS ORDERED: ANTACID SUSP 30 ML UDC (MYLANTA) PO ONE (10:15)
--- NOTE | 2022-12-24 10:16 | ED Chest Pain ---
General Stated Complaint: CHEST PAIN Source: patient Exam Limitations: no limitations History of Present Illness Date Seen by Provider: Dec 24, 2022 Time Seen by Provider: 09:58 Initial Comments 72yoM with PMH of pAfib on Eliquis (cardioversion on 12/22/22), HTN, HLD coming in due to chest pain. Started at 03:30am today, is in the center of his chest, pressure-like discomfort, constant, nothing seems to make better or worse. Patient has never had pain like this before, denies any history of CAD or stenting. Denies any history of DVT or PE. Has taken all of his meds this morning including his Eliquis. Denies any cough, SOA, fever, n/v/d, weakness, numbness, headache, leg swelling/pain, or any other concerns. Allergies and Home Medications Allergies Coded Allergies: No Known Drug Allergies (Unverified , 08/16/10) Patient Home Medication List Home Medication List Reviewed: Yes Amiodarone HCl (Amiodarone HCl) 200 Mg Tablet, 200 MG PO UD Prescribed by: MARIELLA MONTERO on 12/22/22 1108 Apixaban (Eliquis) 5 Mg Tablet, 5 MG PO BID Prescribed by: REJI JUÁREZ on 12/18/22 1355 Diltiazem HCl (Dilt-Xr) 120 Mg Cap.er.deg, 120 MG PO DAILY, (Reported) Entered as Reported by: Skye Shipman on 12/22/22 0839 Losartan Potassium (Losartan Potassium) 100 Mg Tablet, 100 MG PO DAILY, (Re ported) Entered as Reported by: Skye Shipman on 12/22/22 0842 Potassium Chloride (Potassium Chloride 10 Meq Cap) 10 Meq Capsule.sa, 1 EACH PO DAILY WITH FOOD, (Reported) Entered as Reported by: LORENA ABDUL on 08/16/10 1622 Simvastatin (Simvastatin) 10 Mg Tablet, 10 MG PO HS, (Reported) Entered as Reported by: Skye Shipman on 12/22/22 0844 Discontinued Medications Atorvastatin Calcium (Lipitor 40MG) 40 Mg Tablet, 1 EACH PO HS, (Reported) Discontinued Reason: No Longer Taking Entered as Reported by: LORENA ABDUL on 08/16/10 1622 Hydrochlorothiazide (Hctz) 25 Mg Tab, 25 MG PO DAILY, (Reported) Discontinued Reason: No Longer Taking Entered as Reported by: LORENA ABDUL on 08/16/101621 Losartan Potassium (Cozaar) 50 Mg Tab, 100 MG PO DAILY, (Reported) Discontinued Reason: No Longer Taking Entered as Reported by: LORENA ABDUL on 08/16/101621 Review of Systems Review of Systems Constitutional: No fever EENTM: No Symptoms Reported Respiratory: No Symptoms Reported Cardiovascular: See HPI Gastrointestinal: No Symptoms Reported Genitourinary: No Symptoms Reported Musculoskeletal: no symptoms reported Skin: no symptoms reported Psychiatric/Neurological: No Symptoms Reported Endocrine: No Symptoms Reported Hematologic/Lymphatic: No Symptoms Reported Past Ihjzfsj-Ycrwie-Ltpixr Hx Patient Social History Tobacco Use?: No Past Medical History Surgery/Hospitalization HX: afib cardioversion 12/22/[address] Montero Surgeries: No Orthopedic Atrial Fibrillation, High Cholesterol, Hypertension Headaches /Migraines Reproductive Disorders: No Physical Exam Vital Signs Vital Signs - First Documented 12/24/22 10:00 Temp 36.7 Pulse 88 Resp 18 B/P (MAP) 176/100 (125) Pulse Ox 99 O2 Delivery Room Air Capillary Refill : Height, Weight, BMI Height: '" Weight: lbs. oz. kg; 30.25 BMI Method: General Appearance: WD/WN, Anxious HEENT: PERRL/EOMI, Normal ENT Inspection, Pharynx Normal Neck: Full Range of Motion, Normal Inspection, Non Tender, Supple Respiratory: Chest Non Tender, Lungs Clear, Normal Breath Sounds, No Accessory Muscle Use, No Respiratory Distress Cardiovascular: Regular Rate, Rhythm, No Edema, Normal Peripheral Pulses Gastrointestinal: Normal Bowel Sounds, Non Tender, Soft; No Distended, No Guarding Extremity: Normal Capillary Refill, Normal Inspection, Normal Range of Motion, Non Tender, No Calf Tenderness, No Pedal Edema Neurologic/Psychiatric: Alert, No Motor/Sensory Deficits, Normal Mood/Affect Skin: Normal Color, Warm/Dry Lymphatic: No Adenopathy Progress/Results/Core Measures Results/Orders Lab Results Laboratory Tests Test 12/24/22 10:07 12/24/22 10:54 12/24/22 11:51 Range/Units White Blood Count 13.0 H 4.3-11.0 10^3/uL Red Blood Count 5.59 H 4.30-5.52 10^6/uL Hemoglobin 17.1 13.3-17.7 g/dL Hematocrit 49 40-54 % Mean Corpuscular Volume 88 80-99 fL Mean Corpuscular Hemoglobin 31 25-34 pg Mean Corpuscular Hemoglobin Concent 35 32-36 g/dL Red Cell Distribution Width 13.5 10.0-14.5 % Platelet Count 209 130-400 10^3/uL Mean Platelet Volume 9.8 9.0-12.2 fL Immature Granulocyte % (Auto) 1 % Neutrophils (%) (Auto) 74 42-75 % Lymphocytes (%) (Auto) 17 12-44 % Monocytes (%) (Auto) 7 0-12 % Eosinophils (%) (Auto) 1 0-10 % Basophils (%) (Auto) 1 0-10 % Neutrophils # (Auto) 9.6 H 1.8-7.8 10^3/uL Lymphocytes # (Auto) 2.3 1.0-4.0 10^3/uL Monocytes # (Auto) 0.9 0.0-1.0 10^3/uL Eosinophils # (Auto) 0.1 0.0-0.3 10^3/uL Basophils # (Auto) 0.1 0.0-0.1 10^3/uL Immature Granulocyte # (Auto) 0.1 0.0-0.1 10^3/uL Prothrombin Time 14.5 12.2-14.7 SEC INR Comment 1.1 0.8-1.4 Activated Partial Thromboplast Time 31 24-35 SEC D-Dimer 0.28 0.00-0.49 UG/ML Sodium Level 137 135-145 MMOL/L Potassium Level 3.5 L 3.6-5.0 MMOL/L Chloride Level 103 98-107 MMOL/L Carbon Dioxide Level 21 21-32 MMOL/L Anion Gap 13 5-14 MMOL/L Blood Urea Nitrogen 14 7-18 MG/DL Creatinine 1.33 H 0.60-1.30 MG/DL Estimat Glomerular Filtration Rate 57 BUN/Creatinine Ratio 11 Glucose Level 111 H 70-105 MG/DL Calcium Level 9.6 8.5-10.1 MG/DL Corrected Calcium 9.2 8.5-10.1 MG/DL Magnesium Level 1.9 1.6-2.4 MG/DL Total Bilirubin 2.0 H 0.1-1.0 MG/DL Aspartate Amino Transf (AST/SGOT) 21 5-34 U/L Alanine Aminotransferase (ALT/SGPT) 30 0-55 U/L Alkaline Phosphatase 136 40-136 U/L Troponin I < 0.30 < 0.30 <0.30 NG/ML Pro-B-Type Natriuretic Peptide 344.2 H <125.0 PG/ML Total Protein 7.4 6.4-8.2 GM/DL Albumin 4.5 3.2-4.5 GM/DL Lipase 25 8-78 U/L Influenza Type A (RT-PCR) Not Detected Not Detecte Influenza Type B (RT-PCR) Not Detected Not Detecte SARS-CoV-2 RNA (RT-PCR) Not Detected Not Detecte My Orders Orders - REJI JUÁREZ MD Cbc With Automated Diff (12/24/22 10:07) Magnesium (12/24/22 10:07) Chest 1 View Ap/Pa Only (12/24/22 10:07) Ekg Tracing (12/24/22 10:07) Comprehensive Metabolic Panel (12/24/22 10:07) Protime With Inr (12/24/22 10:07) Partial Thromboplastin Time (12/24/22 10:07) O2 (12/24/22 10:07) Monitor-Rhythm Ecg Trace Only (12/24/22 10:07) Aspirin Chewable Tablet (Baby Aspirin Ch (12/24/22 10:15) Ed Iv/Invasive Line Start (12/24/22 10:07) Lipase (12/24/22 10:07) Troponin I Fs (12/24/22 10:07) Probnp Fs (12/24/22 10:07) Nitroglycerin Ointment (Nitrobid Ointme (12/24/22 10:15) Lidocaine 2% Viscous 15 Ml (Xylocaine Vi (12/24/22 10:15) Famotidine Tablet (Pepcid Tablet) (12/24/22 10:07) Antacid Suspension (Mylanta Suspension (12/24/22 10:15) Fibrin Degradation Products (12/24/22 10:16) Influenza A And B By Pcr (12/24/22 10:51) Covid 19 Inhouse Test (12/24/22 10:51) Troponin I Fs (12/24/22 11:40) Lorazepam Tablet (Ativan Tablet) (12/24/22 10:51) Medications Given in ED Current Medications Medications Dose Ordered Sig/Bobby Route Start Time Stop Time Status Last Admin Dose Admin Al Hydrox/Mg Hydrox/Simethicone 30 ml ONCE ONCE PO 12/24/22 10:15 12/24/22 10:16 DC 12/24/22 10:18 30 ML Aspirin 324 mg ONCE ONCE PO 12/24/22 10:15 12/24/22 10:16 DC 12/24/22 10:16 324 MG Lidocaine HCl 15 ml ONCE ONCE PO 12/24/22 10:15 12/24/22 10:16 DC 12/24/22 10:18 15 ML Nitroglycerin 1 inch ONCE ONCE TOP 12/24/22 10:15 12/24/22 10:16 DC 12/24/22 10:19 1 INCH Vital Signs/I&O 12/24/22 10:00 Temp 36.7 Pulse 88 Resp 18 B/P (MAP) 176/100 (125) Pulse Ox 99 O2 Delivery Room Air Progress Progress Note : Progress Note 72-year-old male with above history coming in due to chest pain. ABCs were intact and vitals were stable on presentation. Physical exam reassuring with no acute abnormalities. EKG ordered and interpreted by me showing no acute ischemic changes including no STEMI. Chest x-ray ordered and interpreted by me showing no acute changes from prior, specifically no pneumothorax and normal cardiac silhouette. I also personally did a [id number] ultrasound showing no pericardial effusion. An IV was placed and basic labs were obtained including cardiac biomarkers. Troponin was negative x2, D-dimer negative, and otherwise labs similar to his baseline from last week. Given the negative troponin x2, and the constant pain since 3 this morning, it is highly unlikely to be ACS. Given the negative D-dimer and the patient is on Eliquis, also very unlikely to be a PE. After GI cocktail pain was similar, more pleuritic, given 0.5 mg of Ativan since there did seem to be a component that potentially was anxiety related. His pain completely resolved after that. I contacted Dr. Montero and discussed the case with him. He recommends the patient being discharged home on Protonix. I believe he stable for discharge with outpatient follow-up. He was sent home with strict return precautions Initial ECG Impression Date: Dec 24, 2022 Initial ECG Impression Time: 10:02 Initial ECG Rate: 86 Initial ECG Rhythm: Normal Sinus Comment Narrow QRS, normal axis, no significant ST changes or T wave abnormalities, compared to prior EKG, he is no longer in A-fib Diagnostic Imaging Diagonstic Imaging: Xray (chest) Comments [facility]. [place], [place] NAME: MANI LOPEZ [facility] REC#: [id number] PT STATUS: REG ER : 1950 PHYSICIAN: REJI JUÁREZ MD ADMIT DATE: 12/24/22/ER FS Draft Date of Exam:12/24/22 CHEST 1 VIEW AP/PA ONLY INDICATION: Chest pain COMPARISON: 12/22/2022 TECHNIQUE: Single radiograph of the chest dated 12/24/2022. FINDINGS: The cardiac silhouette is within normal limits in size. No significant pulmonary vascular congestion. The lungs are clear of focal pulmonary opacity. No significant pleural effusion. No pneumothorax. No acute osseous abnormality. IMPRESSION: Stable appearing examination without acute cardiopulmonary abnormality. Dictated on workstation # [id number] Dict: 12/24/22 1026 Trans: 12/24/22 1029 [facility] [id number] Interpreted by: ANASTASIIA GALVIN MD Electronically signed by: Departure Impression Primary Impression: Chest pain Qualified Codes: R07.1 - Chest pain on breathing Disposition: 01 HOME, SELF-CARE Condition: Stable Departure-Patient Inst. Decision time for Depature: 12:27 Referrals: CARLA OCHOA MD (PCP) Primary Care Physician MARIELLA MONTERO MD Patient Instructions: Chest Pain (DC) Add. Discharge Instructions: It does not appear like any life-threatening causes of chest pain are happening right now. It is possible that this is coming from your esophagus or the muscles in your chest that can cause pain like this. Dr. Montero recommends panto prazole as a new medication which could help with this. Please call his office and have follow-up, seen sooner if symptoms persist or come back. Scripts Pantoprazole Sodium (Pantoprazole Sodium) 40 Mg Tablet. 40 MG PO DAILY for 30 Days, #30 TAB Prov: REJI JUÁREZ MD 12/24/22 REJI JUÁREZ MD Dec 24, 2022 10:16
[2022-12-24 10:18] LABS: INR 1.1 (0.8-1.4); PROTHROMBIN TIME PATIENT 14.5 SEC (12.2-14.7)
--- NOTE | 2022-12-24 10:29 | Diagnostic Imaging Report ---
INDICATION: Chest pain COMPARISON: 12/22/2022 TECHNIQUE: Single radiograph of the chest dated 12/24/2022. FINDINGS: The cardiac silhouette is within normal limits in size. No significant pulmonary vascular congestion. The lungs are clear of focal pulmonary opacity. No significant pleural effusion. No pneumothorax. No acute osseous abnormality. IMPRESSION: Stable appearing examination without acute cardiopulmonary abnormality. Dictated by: Dictated on workstation # [id number]
[2022-12-24 10:30] LABS: CALCIUM 9.6 MG/DL (8.5-10.1); CREATININE SERUM 1.33 MG/DL (0.60-1.30); MAGNESIUM 1.9 MG/DL (1.6-2.4); POTASSIUM 3.5 MMOL/L (3.6-5.0); TOTAL PROTEIN 7.4 GM/DL (6.4-8.2)
[2022-12-24 10:31] LABS: ALBUMIN 4.5 GM/DL (3.2-4.5)
[2022-12-24] MEDS ORDERED: LORazepam 0.5 MG (ATIVAN) TABLET PO STA (10:51)
[2022-12-24] MEDS ORDERED: PANT40TA52 PO (12:28)
[2022-12-24 12:29] VITALS: BP 163/85
== END 2022-12-24 12:29 | disposition home or self-care (01) ==
LOC: EDUNIT# 09:58 → ER FS 09:59
DX: R07.89 Other chest pain (principal); I48.0 Paroxysmal atrial fibrillation; Z20.822 Contact with and (suspected) exposure to COVID-19; Z79.01 Long term (current) use of anticoagulants
CPT/HCPCS: 36415; 71045; 80053; 83690; 83735; 83880; 84484; 85025; 85379; 85610; 85730; 87636; 93005; 93041

== ENCOUNTER 2023-02-07 08:20 | Day surgery (SDC) | payer MEDICARE ==
[~2023-02-07] VITALS: Ht 185 cm; Wt 102.2 kg
[~2023-02-07 08:20] MED LIST changes: +PANT40TA52 PO
[2023-02-07] MEDS ORDERED: NS IV 1000 ML 1,000 ML IV ONE (08:45)
[2023-02-07] MEDS ORDERED: NS IV 1000 ML 1,000 ML IV SCH (08:45)
[2023-02-07] MEDS ORDERED: NS IV 1000 ML 1,000 ML ONE (08:46)
[2023-02-07 09:25] VITALS: BP 165/101
[2023-02-07] MEDS ORDERED: proPOfol 200 MG/20 ML (DIPRIVAN) VIAL IV ONE (09:27)
[2023-02-07] MEDS ORDERED: ENOXAPARIN 100 MG/1 ML (LOVENOX) SYR SC ONE (09:30)
[2023-02-07] MEDS ORDERED: CYAN-41 PO (09:35)
[2023-02-07] MEDS ORDERED: DILT240C87 PO (09:35)
[2023-02-07] MEDS ORDERED: SIMV10TA26 PO (09:35)
[2023-02-07] MEDS ORDERED: APIX5TAB PO (09:35)
[2023-02-07] MEDS ORDERED: LOSA100T57 PO (09:35)
[2023-02-07] MEDS ORDERED: POTA99TA26 PO (09:35)
[2023-02-07] MEDS ORDERED: AMIO200T65 PO (09:35)
[2023-02-07 09:50] VITALS: BP 138/93
[2023-02-07 09:55] VITALS: BP 141/103
[2023-02-07 10:00] VITALS: BP 141/87
[2023-02-07] MEDS ORDERED: ATOR10TA PO (10:05)
--- NOTE | 2023-02-07 10:05 | Discharge Inst-Post CATH ---
Discharge Inst-CATH/EP Problems Reviewed?: Yes Post Cardiac Cath/EP D/C Inst Follow Up/Plan Appointment with Dr. Montero's office in 2 to 4 weeks <b>CARDIAC CATH/EP PROCEDURE DISCHARGE INSTRUCTIONS</b> ACTIVITY * Go Home directly and rest. * Limit activity of the leg (or wrist if it was used) for 7 days including aer obics, swimming, jogging, bicycling, etc. * Restrict stair-climbing for 7 days if possible, if not, climb up with your non-cath leg, then bring together on the same step. * Avoid lifting, pushing, pulling or excessive movement of the affected extremi ty for 7 days. * Customary sexual activity may be resumed after 2 days-use caution not to use a position that strains or causes pain to the affected extremity. * No driving for 24 hours. * NO SMOKING. * Avoid straining for bowel movements for 7 days. * Gentle walking on level ground is allowed. * Returning to work will depend on the type of procedure and the results. Your doctor will discuss this with you. CALL YOUR DOCTOR FOR ANY OF THE FOLLOWING: *If bleeding from the puncture site occurs- Apply gentle pressure to site with clean cloth and call your doctor or EMS. * If a knot or lump forms under the skin, increases in size, or causes pain. * If bruising appears to be worsening or moving further down your leg instead of disappearing. * Temperature above 101 F. CARE OF YOUR GROIN INCISION; * Bruising or purple discoloration of the skin near the puncture site is common. * You may shower only, no bathtub bathing for 5 days. Be careful to avoid slipping as your leg may feel stiff. * If a closure device was used on your femoral artery, please see the attached guide regarding care of the device and your leg. * Leave dressing on FOR 24 hours. CARE OF YOUR WRIST INCISION; * Bruising or purple discoloration of the skin near the puncture site is common. * You may shower. * DO NOT submerge wrist. * Leave dressing on FOR 24 hours. MARIELLA MONTERO MD Feb 07, 2023 10:05
--- NOTE | 2023-02-07 10:07 | Cardioversion ---
Cardioversion PROCEDURE PHYSICIAN: Mariella Montero DATE OF PROCEDURE: 02/07/23 DIRECT EXTERNAL ELECTRICAL CARDIOVERSION: Indications: Atrial Fibrillation with rapid ventricular rate Preoperative diagnoses: Atrial Fibrillation with rapid ventricular rate Postoperative diagnosis: Sinus rhythm, Successful Electrical Cardioversion History: 72-year-old gentleman with atrial fibrillation, has been maintained on Eliquis, he was started on amiodarone in December 2022. 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 Electrical cardioversion was carried out with anesthesia support with propofol. 200 joules of synchronized shock was delivered through external patches which promptly restored sinus rhythm. The patient tolerated the procedure well. Conclusions: Successful electrical cardioversion terminating atrial fibrillation Final Diagnosis: Paroxysmal atrial fibrillation Hypertension Hyperlipidemia Mitral regurgitation MARIELLA MONTERO MD Feb 07, 2023 10:07
[2023-02-07 10:15] VITALS: BP 159/100
[2023-02-07 10:29] VITALS: BP 161/98
== END 2023-02-07 11:00 | disposition home or self-care (01) ==
LOC: CATH 08:20
PROVIDERS: ATTEND Internal Medicine Cardiovascular Disease
DX: I48.0 Paroxysmal atrial fibrillation (principal); I10 Essential (primary) hypertension; I34.0 Nonrheumatic mitral (valve) insufficiency; I25.10 Atherosclerotic heart disease of native coronary artery without angina pectoris; I65.23 Occlusion and stenosis of bilateral carotid arteries; E66.9 Obesity, unspecified; E78.2 Mixed hyperlipidemia; Z79.899 Other long term (current) drug therapy; Z79.01 Long term (current) use of anticoagulants; Z68.30 Body mass index [BMI] 30.0-30.9, adult
CPT/HCPCS: 92960; 93005

== ENCOUNTER 2023-03-16 18:34 | Emergency (ER) | payer MEDICARE ==
[~2023-03-16] VITALS: Ht 185.5 cm; Wt 102.1 kg
[~2023-03-16 18:34] MED LIST changes: +ATOR10TA PO; +CYAN-41 PO; +DILT240C87 PO; +POTA99TA26 PO
[2023-03-16] MEDS ORDERED: hydrALAZINE (APESOLINE) 20 MG/ML VIAL IV STA (18:52)
[2023-03-16 18:56] LABS: BASOPHILS # (AUTO) 0.1 10^3/uL (0.0-0.1); BASOPHILS % (AUTO) 1 % (0-10); EOSINOPHILS # (AUTO) 0.1 10^3/uL (0.0-0.3); EOSINOPHILS % (AUTO) 1 % (0-10); HEMATOCRIT 49 % (40-54); HEMOGLOBIN 16.5 g/dL (13.3-17.7); LYMPHOCYTES # (AUTO) 3.4 10^3/uL (1.0-4.0); LYMPHOCYTES % (AUTO) 36 % (12-44); MEAN CORPUSCULAR HEMOGLOBIN 30 pg (25-34); MEAN CORPUSCULAR HGB CONC 34 g/dL (32-36); MEAN CORPUSCULAR VOLUME 89 fL (80-99); MEAN PLATELET VOLUME 9.3 fL (9.0-12.2); MONOCYTES # (AUTO) 0.9 10^3/uL (0.0-1.0); MONOCYTES % (AUTO) 10 % (0-12); NEUTROPHILS # (AUTO) 4.9 10^3/uL (1.8-7.8); NEUTROPHILS % (AUTO) 52 % (42-75); PLATELET COUNT 246 10^3/uL (130-400); WHITE BLOOD COUNT 9.4 10^3/uL (4.3-11.0)
[2023-03-16] MEDS ORDERED: ASPIRIN 81 MG CHEW (CHILDREN'S ASA) PO ONE (19:00)
[2023-03-16 19:02] LABS: PROTHROMBIN TIME PATIENT 13.6 SEC (12.2-14.7)
--- NOTE | 2023-03-16 19:11 | ED Chest Pain ---
General Chief Complaint: Chest Pain Stated Complaint: CP Nursing Triage Note: PT AMBULATE TO ROOM FS01 WITHOUT DIFFICULTY WITH C/O CHEST PAIN "ALL DAY" THAT HAS GOTTEN WORSE THIS EVENING. PT REPORTS HX OF ATRIAL FLUTTER WITH AN ABLATION SCHEDULED FOR NEXT MONTH. Source: patient, old records (Dr. Montero, Hand Winder, records from February 07, 2023 when had electrical cardioversion for atrial fibrillation with RVR) History of Present Illness Date Seen by Provider: March 16, 2023 Time Seen by Provider: 18:36 Initial Comments 72-year-old male presenting with complaints of chest pressure that has been going on all day and started yesterday. He states that in the last hour it has gotten worse. He denies any exacerbating symptoms. He does have a history of atrial flutter with electrical cardioversion on 07 February 2023. He states that he did take Tylenol about an hour prior to arrival in the ED and that had not helped with his symptoms. He does have tenderness to palpation on the lower part of his chest. He states he has had similar pains in the past but it has not usually gone all the way across his chest like it is today. He also had elevated blood pressure at home. He denies missing any doses of medicine. He denies having any nausea or vomiting with this. He does get short of breath or winded with exertion. He denies fever, chills, cough, congestion, nausea, vomiting. Timing/Duration: 1-2 days (Worse in the last 1 to 2 hours prior to arrival) Severity/Quality: moderate, pressure Location: substernal, epigastric Radiation: no radiation Activities at Onset: none Prior CP/Workup: other (Atrial fibrillation with RVR and had elective electrical cardioversion on February 07, 2023) ASA po PROFESSOR OF ANTHROPOLOGY: No NTG SL PROFESSOR OF ANTHROPOLOGY: No Associated Symptoms: No abdominal pain, No back pain, No diaphoresis, No dizziness, No edema, No fatigue, No fever/chills, No headache, No heartburn, No nausea/vomiting, No rash, No swelling/lump in chest, No syncope Allergies and Home Medications Allergies Coded Allergies: No Known Drug Allergies (Unverified , 08/16/10) Patient Home Medication List Home Medication List Reviewed: Yes Amiodarone HCl (Amiodarone HCl) 200 Mg Tablet, 200 MG PO BID, (Reported) Entered as Reported by: CORONA ARIAS on 02/07/23934 Apixaban (Eliquis) 5 Mg Tablet, 5 MG PO BID, (Reported) Entered as Reported by: CORONA ARIAS on 02/07/23934 Atorvastatin Calcium (Lipitor) 10 Mg Tablet, 10 MG PO DAILY Prescribed by: MARIELLA MONTERO on 02/07/23 1005 Cyanocobalamin (Vitamin B-12) (Vitamin B-12) 1,000 Mcg Tablet, 1,000 MCG PO DAILY, (Reported) Entered as Reported by: CORONA ARIAS on 02/07/23934 Diltiazem HCl (Diltiazem ER) 240 Mg Capsule.er, 240 MG PO DAILY, (Reported) Entered as Reported by: CORONA ARIAS on 02/07/23934 Losartan Potassium (Losartan Potassium) 100 Mg Tablet, 100 MG PO DAILY, (Report ed) Entered as Reported by: CORONA ARIAS on 02/07/23934 Potassium Gluconate (Potassium) 595 Mg (99 Mg) Tablet, 99 MG PO DAILY, (Reported) Entered as Reported by: CORONA ARIAS on 02/07/23934 Review of Systems Review of Systems Constitutional: No chills, No dizziness, No fever EENTM: No Symptoms Reported Respiratory: See HPI Cardiovascular: See HPI Gastrointestinal: Denies Nausea, Denies Vomiting Genitourinary: No Symptoms Reported Musculoskeletal: no symptoms reported Skin: no symptoms reported Psychiatric/Neurological: Anxiety Past Pqullqo-Icuonf-Lkhyfu Hx Patient Social History Tobacco Use?: No Smoking Status: Never a Smoker Smokeless Tobacco Frequency: Never a User Use of E-Cig and/or Vaping dev: No Use of E-Cig and/or Vaping Kurt: Never a User Substance use?: No Alcohol Use?: No Pt feels they are or have been: No Past Medical History Surgery/Hospitalization HX: afib cardioversion 12/22/[address] Montero Surgeries: No Orthopedic Atrial Fibrillation, High Cholesterol, Hypertension Headaches /Migraines Reproductive Disorders: No Physical Exam Vital Signs Vital Signs - First Documented 03/16/23 18:34 Temp 36.5 Pulse 67 Resp 19 B/P (MAP) 177/89 (118) Pulse Ox 100 O2 Delivery Room Air Capillary Refill : Less Than 3 Seconds Height, Weight, BMI Height: '" Weight: lbs. oz. kg; 29.00 BMI Method: General Appearance: No Apparent Distress, Anxious HEENT: PERRL/EOMI, Pharynx Normal Neck: Full Range of Motion, Normal Inspection, Non Tender, Supple Respiratory: No Chest Non Tender (tender to palpation over lower part of chest); Lungs Clear, Normal Breath Sounds, No Accessory Muscle Use, No Respiratory Distress Cardiovascular: Regular Rate, Rhythm, No Murmur, Normal Peripheral Pulses Gastrointestinal: Normal Bowel Sounds, No Pulsatile Mass, Non Tender, Soft Extremity: Normal Capillary Refill, No Pedal Edema Neurologic/Psychiatric: Alert, Oriented x3 Skin: Normal Color, Warm/Dry Images 1 - tender to palpation over the lower part of chest that he states is similar to the pressure he is feeling in his chest Progress/Results/Core Measures Results/Orders Lab Results Laboratory Tests Test 03/16/23 18:48 Range/Units White Blood Count 9.4 4.3-11.0 10^3/uL Red Blood Count 5.46 4.30-5.52 10^6/uL Hemoglobin 16.5 13.3-17.7 g/dL Hematocrit 49 40-54 % Mean Corpuscular Volume 89 80-99 fL Mean Corpuscular Hemoglobin 30 25-34 pg Mean Corpuscular Hemoglobin Concent 34 32-36 g/dL Red Cell Distribution Width 13.6 10.0-14.5 % Platelet Count 246 130-400 10^3/uL Mean Platelet Volume 9.3 9.0-12.2 fL Immature Granulocyte % (Auto) 1 % Neutrophils (%) (Auto) 52 42-75 % Lymphocytes (%) (Auto) 36 12-44 % Monocytes (%) (Auto) 10 0-12 % Eosinophils (%) (Auto) 1 0-10 % Basophils (%) (Auto) 1 0-10 % Neutrophils # (Auto) 4.9 1.8-7.8 10^3/uL Lymphocytes # (Auto) 3.4 1.0-4.0 10^3/uL Monocytes # (Auto) 0.9 0.0-1.0 10^3/uL Eosinophils # (Auto) 0.1 0.0-0.3 10^3/uL Basophils # (Auto) 0.1 0.0-0.1 10^3/uL Immature Granulocyte # (Auto) 0.1 0.0-0.1 10^3/uL Prothrombin Time 13.6 12.2-14.7 SEC INR Comment 1.0 0.8-1.4 Activated Partial Thromboplast Time 30 24-35 SEC Sodium Level 139 135-145 MMOL/L Potassium Level 3.3 L 3.6-5.0 MMOL/L Chloride Level 103 98-107 MMOL/L Carbon Dioxide Level 23 21-32 MMOL/L Anion Gap 13 5-14 MMOL/L Blood Urea Nitrogen 17 7-18 MG/DL Creatinine 1.88 H 0.60-1.30 MG/DL Estimat Glomerular Filtration Rate 38 BUN/Creatinine Ratio 9 Glucose Level 110 H 70-105 MG/DL Calcium Level 9.5 8.5-10.1 MG/DL Corrected Calcium 9.3 8.5-10.1 MG/DL Magnesium Level 2.2 1.6-2.4 MG/DL Total Bilirubin 0.8 0.1-1.0 MG/DL Aspartate Amino Transf (AST/SGOT) 30 5-34 U/L Alanine Aminotransferase (ALT/SGPT) 36 0-55 U/L Alkaline Phosphatase 144 H 40-136 U/L Troponin I < 0.30 <0.30 NG/ML Pro-B-Type Natriuretic Peptide 151.0 H <125.0 PG/ML Total Protein 7.5 6.4-8.2 GM/DL Albumin 4.3 3.2-4.5 GM/DL Lipase 27 8-78 U/L My Orders Orders - VERONICA SAUNDERS MD Cbc With Automated Diff (03/16/23 18:52) Magnesium (03/16/23 18:52) Chest 1 View Ap/Pa Only (03/16/23 18:52) Ekg Tracing (03/16/23 18:52) Comprehensive Metabolic Panel (03/16/23 18:52) Protime With Inr (03/16/23 18:52) Partial Thromboplastin Time (03/16/23 18:52) O2 (03/16/23 18:52) Monitor-Rhythm Ecg Trace Only (03/16/23 18:52) Aspirin Chewable Tablet (Baby Aspirin Ch (03/16/23 19:00) Ed Iv/Invasive Line Start (03/16/23 18:52) Lipase (03/16/23 18:52) Troponin I Fs (03/16/23 18:52) Probnp Fs (03/16/23 18:52) Hydralazine Injection (Apresoline Inject (03/16/23 18:52) Ns Iv 1000 Ml (Sodium Chloride 0.9%) (03/16/23 19:17) Medications Given in ED Current Medications Medications Dose Ordered Sig/Bobby Route Start Time Stop Time Status Last Admin Dose Admin Aspirin 324 mg ONCE ONCE PO 03/16/23 19:00 03/16/23 19:01 DC 03/16/23 18:59 324 MG Vital Signs/I&O 03/16/23 03/16/23 18:34 18:34 Temp 36.5 Pulse 67 Resp 19 B/P (MAP) 177/89 (118) Pulse Ox 100 O2 Delivery Room Air Room Air Blood Pressure Mean: 118 Progress Progress Note #1: Progress Note Potential diagnosis of myocardial infarction, atrial fibrillation with RVR, CHF, pneumonia, GERD, hypertensive urgency, electrolyte imbalance, renal failure, hepatic failure. Obtain basic blood work with peripheral IV access and check complete blood count, comprehensive metabolic profile, coagulation factors, proBNP, troponin. Chest x-ray to evaluate for possible pathology in the chest. Electrocardiogram to check his heart rate and rhythm. Placed on cardiac groundwater monitoring technician and on my initial interpretation it shows sinus rhythm with a heart rate in the 60s. Initial blood pressure was elevated with systolic blood pressure of 177. Oxygen saturation of 98 to 100% on room air. Order aspirin 324 mg p.o. x1 for his complaint of chest pain. He is currently on Eliquis as well. Order hydralazine 10 mg IV to try and help with his blood pressure and see if that also helps with his pain. Progress Note #2: Progress Note Complete blood count did not show elevation of the white blood cell count for infection. He was not anemic with a hemoglobin of 16.5. His comprehensive metabolic profile did not show acute electrolyte abnormalities but did have some elevation of his creatinine. His troponin came back negative at less than 0.3. He did not have an elevated proBNP to indicate heart failure. His 1 view chest x-ray did not show any signs of acute infiltrate or effusions. Patient's electrocardiogram did not show acute ST elevation or ischemic changes. He was feeling better as his blood pressure came down with the hydralazine. He did have his IV infiltrate and refused a repeat IV placement. He did show signs of elevated creatinine of 1.88. Normally he runs 1.3-1.5 for his creatinine. I did order a liter of normal saline IV fluid for hydration but he wanted to drink fluids rather than have another IV started. Progress Note #3: Progress Note Reviewed results with patient and spouse he did not want to have any further blood work or testing done here. He felt reassured that the test results had not shown any signs of heart attack or heart damage. Since he had been having symptoms for the last 2 days he was becoming more anxious and worried about it. He states that he is a little "goosy" about how his heart is functioning and his heart health since he has had to have cardioversion for atrial fibrillation and is scheduled to see a orthopaedic nurse Dr. cJ through for an ablation. He was reassured that his test results had looked okay tonight. He wanted to go home and just drink fluids and try to rest. Counseled if he had new symptoms or worsening symptoms that we needed to take another look. Otherwise check back through cardiology or primary care. Initial ECG Impression Date: March 16, 2023 Initial ECG Impression Time: 18:38 Initial ECG Rate: 66 Initial ECG Rhythm: Normal Sinus Initial ECG Comparisson: Unchanged (Similar to tracing on February 07, 2023) Comment On my personal interpretation and review his electrocardiogram shows sinus rhythm with heart rate of 66 bpm. VA interval [address] elevation. QT interval 343 ms with a QTc interval 356 ms. Overall appears similar to tracing from February 07, 2023. Diagnostic Imaging Diagonstic Imaging: Xray Plain Films/CT/US/NM/MRI: chest Comments [facility]. [place], [place] NAME: MANI LOPEZ [facility] REC#: [id number] PT STATUS: REG ER : 1950 PHYSICIAN: VERONICA SAUNDERS MD ADMIT DATE: 03/16/23/ER FS Signed Date of Exam:03/16/23 CHEST 1 VIEW AP/PA ONLY EXAMINATION: Chest 1 view. HISTORY: Chest pain. COMPARISON: 12/24/2022. FINDINGS: The lung volumes are normal. No focal consolidation is seen. No large pleural effusion or pneumothorax is seen. The cardiomediastinal silhouette is normal in size and contour. No acute osseous abnormality is seen. IMPRESSION: No acute pleuroparenchymal process. Dictated by: Dictated on workstation # [id number] Dict: 03/16/231907 Trans: 03/16/231910 PJE [id number] Interpreted by: KATIA MARTINEZ DO Electronically signed by: KATIA MARTINEZ DO 03/16/231910 Reviewed: Reviewed by Me Departure Impression Primary Impression: Atypical chest pain Additional Impressions: Hypertension Qualified Codes: I10 - Essential (primary) hypertension Dehydration Disposition: HOME, SELF-CARE Condition: Stable Departure-Patient Inst. Decision time for Depature: 20:06 Referrals: CARLA OCHOA MD (PCP/Family) Primary Care Physician Patient Instructions: High Blood Pressure ED, Chest Pain, Adult ED, DASH Diet Add. Discharge Instructions: Your test tonight did not show any recurrent atrial fibrillation or heart damage. You do not have signs of heart attack or fluid buildup on your testing. It does look like you might be a little bit dehydrated so drinking more water would be helpful. All discharge instructions reviewed with patient and/or family. Voiced understanding. VERONICA SAUNDERS MD March 16, 2023 19:11
[2023-03-16 19:14] LABS: ALBUMIN 4.3 GM/DL (3.2-4.5); BILIRUBIN,TOTAL 0.8 MG/DL (0.1-1.0); CALCIUM 9.5 MG/DL (8.5-10.1); CREATININE SERUM 1.88 MG/DL (0.60-1.30); MAGNESIUM 2.2 MG/DL (1.6-2.4); POTASSIUM 3.3 MMOL/L (3.6-5.0); TOTAL PROTEIN 7.5 GM/DL (6.4-8.2)
[2023-03-16] MEDS ORDERED: NS IV 1000 ML 1,000 ML IV STA (19:17)
[2023-03-16 20:10] VITALS: BP 177/89
== END 2023-03-16 20:10 | disposition home or self-care (01) ==
LOC: EDUNIT# 18:34 → ER FS 18:36
DX: I10 Essential (primary) hypertension (principal); E86.0 Dehydration; R79.89 Other specified abnormal findings of blood chemistry; Z79.01 Long term (current) use of anticoagulants; Z98.890 Other specified postprocedural states
CPT/HCPCS: 36415; 71045; 80053; 83690; 83735; 83880; 84484; 85025; 85610; 85730; 93005; 93041

== ENCOUNTER → 2023-04-18 | Outpatient (CLI) | payer MEDICARE ==
[~2023-04-18] MED LIST changes: +ATOR10TA66 PO; +DILT240C74 PO; -DILT240C87 PO; -LOSA100T57 PO; +LOSA100T58 PO
[2023-04-18 09:18] LABS: HEMATOCRIT 46 % (40-54); HEMOGLOBIN 15.3 g/dL (13.3-17.7); MEAN CORPUSCULAR HEMOGLOBIN 31 pg (25-34); MEAN CORPUSCULAR HGB CONC 33 g/dL (32-36); MEAN CORPUSCULAR VOLUME 91 fL (80-99); MEAN PLATELET VOLUME 9.9 fL (9.0-12.2); PLATELET COUNT 239 10^3/uL (130-400); WHITE BLOOD COUNT 9.1 10^3/uL (4.3-11.0)
[2023-04-18 09:39] LABS: CALCIUM 9.9 MG/DL (8.5-10.1); CREATININE SERUM 2.1 MG/DL (0.60-1.30); MAGNESIUM 2.1 MG/DL (1.6-2.4); POTASSIUM 3.7 MMOL/L (3.6-5.0)
== END ==
LOC: LAB FS 08:26
PROVIDERS: ATTEND Internal Medicine Cardiovascular Disease
DX: I48.91 Unspecified atrial fibrillation (principal); I10 Essential (primary) hypertension; E78.5 Hyperlipidemia, unspecified
CPT/HCPCS: 36415; 80048; 83735; 85027

== ENCOUNTER 2023-04-23 07:09 | Inpatient (IN) | payer MEDICARE ==
[~2023-04-23] VITALS: Ht 185 cm; Wt 102.0 kg
[2023-04-23] VITALS (13 sets, daily range): BP systolic 140–190; BP diastolic 77–89
[~2023-04-23 07:09] MED LIST changes: -ATOR10TA66 PO
[2023-04-23] MEDS ORDERED: HEParin (CATH LAB) 2,000 ML IV ONE (07:31)
[2023-04-23] MEDS ORDERED: NS IV 1000 ML 1,000 ML ONE (07:31)
[2023-04-23] MEDS ORDERED: LIDOCAINE 1% INJ 20 ML VIAL ONE (07:31)
[2023-04-23] MEDS ORDERED: NS IV 1000 ML 1,000 ML IV ONE (08:00)
[2023-04-23] MEDS ORDERED: ATOR10TA66 PO (08:34)
[2023-04-23] MEDS ORDERED: fentaNYL INJ 100 MCG/2 ML AMP ONE ×2 (09:04→09:45)
[2023-04-23] MEDS ORDERED: MIDAZOLAM 5 MG/5 ML (VERSED) VIAL ONE ×2 (09:04→09:45)
--- NOTE | 2023-04-23 09:20 | Pre-Op Note & Conscious Sedat ---
Pre-Operative Progress Note Date of Available H&P: Apr 23, 2023 Date H&P Reviewed: Apr 23, 2023 Time H&P Reviewed: 09:17 History & Physical: H&P Reviewed, Patient Examed Changes from last HP Patient has no new complaints. Current rhythm appears to be NSR. He states has been compliant without missing any doses of his anticoagulation with Eliquis. On exam he has a regular rhythm. Femoral pulses are 2+/4+ without obvious bruits noted. I personally reviewed the details of the procedure and the risk of the procedure with the patient and his Zee, today. Prior EP Consult note Date of Service:03/02/2023 Miguelito Luciois a 72 y.o.male. HPI I had the pleasure of seeing your patient Miguelito Lucio as a part of the [facility] at [facility] in [place] today for initial Electrophysiolgy Consultation regarding his ?Paroxysmal Atrial Fibrillation and Atrial Flutter. He is typically followed and was referred by my colleague Dr. oMntero, his primary power saw mechanic. Mr. Lucio is an exceptionally pleasant 72 y.o. male, who is accompanied by his equally pleasant spouse, Zee. All data in this note, including the past medical history, was newly collected today. His PMHx briefly includes:? Paroxysmal Atrial Fibrillation; Atrial Flutter; Essential Hypertension; Hyperlipidemia; Negative Carotid Artery Duplex (12/18/2022); Mitral Valve Regurgitation; Obesity He has a [id number] score of 2:Age>65; HTN NOTE: Intolerance to beta blockers with nightmares. DETAILED UPDATED PMHx: -- 09/28/2021: ECHO: ([facility]) Normal LV chamber size with mild concentric LVH. Normal LV systolic function with an EF ~ 55-60%with no regional wall motion abnormalities identified. Doppler parameters are consistent with grade 1 diastolic dysfunction. Mild MVR. Mild AV sclerosis. PASP ~ 31mmHg assuming a RAP of 5mmHg. -- 10/06/2021: Exercise Stress Test: ([facility]) Normal HR and BP response to exercise. There was no exercise-induced CP. There were isolated PVC through the duration of the test. There were no significant stress induced electrocardiogram changes. The patient exhibited good exercise capacity for age at 6 minutes and 57 seconds of the Soren protocol. This is a negative exercise treadmill test representing low risk for future cardiac ischemic events. -- 12/18/2022: Carotid Artery Ultrasound: ([facility]) Right: Mild 1- 39% internal carotid artery stenosis, nonobstructive disease. Antegrade vertebral flow. Left: Mild 1-39% internal carotid artery stenosis, nonobstructive disease. Antegrade vertebral flow. -- 12/18/22:Atrial Flutter-->ER presentation at [facility]. ECG documents atrial flutter with a flutter cycle length of 200 ms with VAVB. Flutter waves at times are less consistent and therefore cannot definitively rule out coarse A-fib. -- 12/22/2022: LOW + DCCV: ([facility]) - LOW: Dilated LA and KYM with no clot or thrombus seen in the LA or KYM. Mild LV hypokinesia with diffuse LVH,EF = 40-45%. Midl MVR. - DCCV: Successful electrical cardioversion terminating AF. -- 12/22/2022: Initiated on Amiodarone -- 01/17/23:Recurrent AFLECG at OSH documents more clear consistent atrial flutter with a flutter cycle length of 220 MS and VAVB. -- 01/30/2023: OV (Dr. Montero): EKG today showing patient back in atrial fibrillation/flutter. He has been on uninterrupted Eliquis. Referred to EP to consider an ablation procedure. Also recommended a sleep study. ECG Consistent With AFL with a AFL cycle length of 230 ms with VAVB -- 02/07/2023: DCCV: ([facility]) Successful electrical cardioversion terminating AFL. His HPI for today is discussed in greater detail as a part of the Assessment and Plan below. FHx, SHx and ROS documented and I have reviewed. Most pertinent ROS is included/discussed throughout the note, e.g. HPI and A/P. ASSESSMENT AND PLAN: -- ? Paroxysmal Atrial Fibrillation --ParoxysmalAtrial Flutter -- Essential Hypertension -- Hyperlipidemia -- Negative Carotid Artery Duplex (12/18/2022) -- Mitral Valve Regurgitation -- Obesity with a BMI of 30 Mr. Park noted in his history above his had documented atrial flutter. At times it is clear that his atrial flutter appears to be a right-sided CTI dependent atrial flutter circuit with negative flutter waves in the inferior leads and positive flutter waves in lead V1. However some of his initial ECGs that I have and is difficult to be as definitive whether he is in atrial flutter or possibly coarse A-fib. ECGs more recently however are clearly consistent with atrial flutter as described above.. We had a lengthy discussion regarding Atrial Flutter, the pathophysiology of Atrial Flutter, the mechanism, and therapeutic options. We discussed what I call the3 R's: The Rhythm being abnormal; the Rate being Rapid; and the Risk of stroke. We also discussed Atrial Fibrillation (AFIB) and the difference between Atrial Fibrillation and Atrial Flutter. Discussed that some of his initial ECG certainly could be front office representative of atrial fibrillation as opposed to atrial flutter. Regardless,I have recommended thathepursue Rhythm Control, that is, r estoration and maintenance of sinus rhythm. Regarding Rhythm Control ofhisAFL-->We discussedcontinuing Amiodarone therapyvs. EPS and RFA for a cure. For now regardless we will reduce his amiodarone to 200 mg daily. We discussed the procedure of AFL RFA itself along with its associated risks, rationale, options, and benefits in detail withMiguelito nichole. We discussed the risks to include, but not be limited to: , [place], stroke, cardiac perforation, complete heart block, bleeding, swelling, hematoma, infection, pneumothorax, DVT, or vascular injury. We discussed that the cure rate for CavalTricuspid Isthmus-Dependent Atrial Flutter Ablation is ~90+%. Miguelito nichole, verbalized a good understanding of all of this andstates he wants to talk to Dr. Montero and will let us know if kristynwish(es) to proceed with an EPS and RFA as a definitive/curative procedure. Therefore we willWAITto schedule his proceduretill we hear back from the patient. Hewill continue hisanticoagulation up to and throughout the procedure. Hewill continue hisrate controlling medication up to and throughout the procedure. If he remains on amiodarone we will likely discontinue it after the ablation. He may benefit from a ILR device implant post ablation or at least careful monitoring of his pulse for any atrial fibrillation prior to discontinuing anticoagulation. Regarding Rate--she is on diltiazem CD240 mg daily Regarding Risk of Stroke--he is on Eliquis. We discussed the association between inadequately treated BP and AFIB and that inadequately treated HTN will increase the risk of recurrent AFIB and make controlling the AFIB much more difficult. Thus I emphasized the need to monitor hisBP at home and ensure hisBP stays within the target range discussed. He does not appear to have symptoms significant for sleep apnea. He apparently has been to the ER in the past with chest discomfort which was diagnosed as esophageal spasms. He denies any other symptoms otherwise of chest discomfort, significant shortness of breath, lightheadedness, near-syncope or syncope. See additional plan details below. PLAN: --Patient will decrease Amiodarone to 200 mg daily starting Sunday. --Patient will discuss with Dr. Montero and let us know if he wishes to proceed with AFL CTI RFA in which case we will schedule that at [place]. No anesthesia needed. Conscious sedation. CartoMapping System -- Sinceheis on anticoagulation, I have asked himto monitor for any signs or symptoms of bleeding, including blood in the stool or urine, etc and [facility]. -- I have askedhimto check hispulse twice dailyfor irregularity and/or rapidity and contact our office if it occurs and persists. I have asked himto keep a log including date, once a day HR, regular or irregular--elaborating on skipped beat or AFIB. If they have an Apple Watch or [employer] Mobile device, I myles ve also asked them to check once a day to confirm their rhythm. -- I have askedhimto Check hisBP (Blood Pressure) daily and vary the time of day hechecks it. -- We discussed that exercise helps withhisblood pressure and heshould try to get at least 30 minutes of moderate intensity exercise at least 4 days a week. -- We discussed the importance of a low salt diet up to 2 grams daily. -- We discussed thathisBP Goal to be consistently below 140/90 mmHg. -- We discussed ifhisblood pressure is above the parameters described, to [facility]. Total Time Today [id number] in the following activities: Preparing to see the patient, Obtaining and/or reviewing separately obtained history, Performing a medically appropriate examination and/or evaluation, Counseling and educating the patient/family/caregiver, Ordering medications, tests, or procedures, Referring and communication with other health child caregiver private home (when not separately reported) and Documenting clinical information in the electronic or other health record Mr. Lucio was educated regarding plan of care. He was instructed to call our office with any questions or concerns, as well as to notify us of any new or worsening symptoms. He verbalized understanding. I appreciate the opportunity to participate in the care of your patient. Please do not hesitate to contact me directly if you have any questions or further insights into his care. Vitals: l 03/02/23 1505 BP: (!) 177/74 Pulse: 68 Weight: 103.9 kg (229 lb) Height: 185.4 cm (6' 1") Body mass index is 30.21 kg/m. Past Medical History Patient Active Problem List Diagnosis Date Noted Atrial fibrillation (HCC) 02/27/2023 Per OV note on 01/30/[address] Josué Montero ([facility], Cardiology) 12/22/2022 - LOW + DCCV: ([facility]) - LOW: Dilated LA and KYM with no clot or thrombus seen in the LA or KYM. Mild LV hypokinesia with diffuse LVH, EF = 40-45%. Midl MVR. - DCCV: Successful electrical cardioversion terminating AF. 02/07/2023 - DCCV: ([facility]) Successful electrical cardioversion terminating AF. Primary hypertension 02/27/2023 Per OV note on 01/30/[address] Josué Montero ([facility], Cardiology) 09/28/2021 - ECHO: ([facility]) Normal LV chamber size with mild concentric LVH. Normal LV systolic function with an EF ~ 55-60% with no r egional wall motion abnormalities identified. Doppler parameters are consistent with grade 1 diastolic dysfunction. Mild MVR. Mild AV sclerosis. PASP ~ 31mmHg assuming a RAP of 5mmHg. 10/06/2021 - Exercise Stress Test: ([facility]) Normal HR and BP response to exercise. There was no exercise-induced CP. There were isolated PVC through the duration of the test. There were no significant stress induced electrocardiogram changes. The patient exhibited good exercise capacity for age at 6 minutes and 57 seconds of the Soren protocol. This is a negative exercise treadmill test representing low risk for future cardiac ischemic events. HLD (hyperlipidemia) 02/27/2023 Per OV note on 01/30/[address] Josué Montero ([facility] Card[facility]) Carotid artery disease (HCC) 02/27/2023 Per OV note on 01/30/[address] Josué Montero ([facility]) 12/18/2022 - Carotid Artery Ultrasound: ([facility]) Right: Mild 1-39% internal carotid artery stenosis, nonobstructive disease. Antegrade vertebral flow. Left: Mild 1-39% internal carotid artery stenosis, nonobstructive disease. Antegrade vertebral flow. Review of Systems All other systems reviewed and are negative. Physical Exam Constitutional:Heis in no acute distress, resting comfortably. Skin/Integument:Warm and dry. Eyes: PERRL, sclera are non-icteric and no xanthelasmas noted. ENT: Hearing is intact. Heme/Lym/Immun:Supple neck, without thyromegaly. Respiratory-Pulmonary/Chest:Effort normal and breath sounds normal. No respiratory distress or accessory muscle use. No obvious tracheal deviation. Clear to auscultation bilaterally. Cardiovascular:No evidence of increased jugular venous pressure, carotids are 2+/4+ equal bilaterally. Regular rhythm, S1, S2. 2/6 systolic murmur HBA the sternal border. No heaves, thrills or rubs. Musc/Skeletal-Extremities:Without significant peripheral edema. With what appears to be full ROM. Neuro:Patient is alert and oriented to person, place, and time. Psych: Patient does not appear anxious, heappears appropriate, with normal non-pressured speech and what appears to be appropriate judgement Cardiovascular Health Factors Vitals BP Readings from Last 3 Encounters: 03/02/23 (!) 177/74 Wt Readings from Last 3 Encounters: 03/02/23 103.9 kg (229 lb) BMI Readings from Last 3 Encounters: 03/02/23 30.21 kg/m Smoking Social History Tobacco Use Smoking Status Never Smokeless Tobacco Never Lipid Profile No results found for: CHOL No results found for: HDL No results found for: LDL No results found for: TRIG Blood Sugar No results found for: HGBA1C No results found for: GLU, GLUF, GLUPOC Problems Addressed Today No diagnosis found. Current Medications (including today's revisions) amiodarone (CORDARONE) 200 mg tablet Take one tablet by mouth daily. Take with food. apixaban (ELIQUIS) 5 mg tablet Take one tablet by mouth twice daily. atorvastatin (LIPITOR) 10 mg tablet Take one tablet by mouth daily. cholestyramine-sucrose (QUESTRAN) 4 gram powder Take four g by mouth daily as needed. Mix with at least 4 oz water or non-carbonated liquid; take other medications 1 hour before or 4 hours after cholestyramine powder cyanocobalamin (vitamin B-12) 500 mcg tablet Take one tablet by mouth daily. diltiazem CD (CARDIZEM CD) 240 mg capsule Take one capsule by mouth daily. losartan (COZAAR) 100 mg tablet Take one tablet by mouth daily. potassium gluconate 595 mg (99 mg) tab Take one tablet by mouth. simvastatin (ZOCOR) 10 mg tablet Take one tablet by mouth at bedtime daily. Pre-Op Diagnosis: Paroxysmal Atrial Flutter Moderate Sedation PreProcedure Time 09:18 ASA Score 2 Airway Lungs Heart ASA score ASA 1: a normal healthy patient ASA 2: a patient with a mild systemic disease (mid diabetes, controlled hypertension, obesity ASA 3: a patient with a severe systemic disease that limits activity (angina, COPD, prior Myocardial infarction) ASA 4: a patient with an incapacitating disease that is a constant threat to life (CHF, renal failure) ASA 5: a moribund patient not expected to survive 24 hrs. (ruptured aneurysm) ASA 6: a declared brain- patient whose organs are being harvested. For emergent operations, add the letter E after the classification Mallampati Classification Grade 2 Sedation Plan Analgesia, Amnesia, Plan communicated to team members, Discussed options with patient/fam, Discussed risks with patient/fam The patient is an appropriate candidate to undergo the planned procedure, sedation, and anesthesia. The patient immediately re-assessed prior to indication. I personally reviewed the procedure and the risks of the procedure with the patient and his Zee today. SIL MADISON MD Apr 23, 2023 09:20
--- NOTE | 2023-04-23 09:46 | Discharge Inst-Cardiology ---
Cardiology Discharge Inst. You should resume your normal activity in [address] after 1 days. No lifting greater than 10 pounds for 1 week. No sexual activity of strenuous activity for 1 week. You may shower now, however no baths for 1 week. Call if any swelling, redness or bleeding from groin site. No soaking in bath tub for 1 week. -STOP AMIODARONE -Continue Anticoagulation with Eliquis -I would consider discontinuation of anticoagulation at 1 to 3 months but given history of atrial fibrillation would consider ILR device implantation to track for any recurrent atrial fibrillation at that time. -Patient to check his pulse once daily for irregularity and/or rapidity and contact our office if it occurs and persists. I have asked him to keep a log including date, once a day HR, regular or irregular--elaborating on skipped beat or AFIB. If they have an [employer] Watch or [employer] Mobile device, I have also asked them to check once a day to confirm their rhythm. -On anticoagulation, monitor for any signs or symptoms of bleeding, including blood in the stool or urine, etc and to contact his PMD if any occurs. -Follow up with Dr. Montero or Penny, his LARA in one and 3 mos. -Please refrain from strenuous activity for 1 week(s). -Please contact your doctor if you have any of the following symptoms: difficulty breathing, chest pain, swelling at the groin access site, dizziness, fever or chills -No driving for 1 day -Do not lift more than 20 pounds for 1 week(s). -Monitor groin site for the first week post ablation -Okay to shower tomorrow morning. If there is a dressing in the right groin a julio can be carefully removed. -Do not submerge/sit with groin sites underwater for 1 week i.e. bathtub, swimming pool, [place], etc. -F.A.S.T. is an easy way to remember the sudden signs of a stroke. F - face drooping A - arm weakness S - speech difficulty T - TIME TO CALL 911 If you person shows any of these signs, even if the signs go away, call [phone] IMMEDIATELY. Check the time so you will know when the first sign started. Traits and lifestyle habits that increase your risk for stroke include: prior stroke/TIA, age, gender, heredity/race, prior heart attack, high blood pressure, cigarette smoking, diabetes mellitus, carotid or other artery disease, atrial fibrillation, heart disease, high cholesterol, poor diet, physical inactivity, obese, excessive alcohol use and sickle cell disease The most common risk factor for a stroke is high blood pressure. Your goal is to keep your blood pressure below 130/80. If you have diabetes, even if treated, you are at an increased risk of stroke. Many people with diabetes also have high blood pressure, high cholesterol or are overweight. Since you are on anticoagulation, monitor for any signs or symptoms of bleeding, including blood in the stool or urine, etc and to contact your Primary Care Physician if any occurs. Check your BP (Blood Pressure) daily and vary the time of day you check it. Try to follow a low salt diet. Exercise helps with your blood pressure. Try to get at least 30 minutes of moderate intensity exercise at least 4 days a week. Call Dr. Montero's office or your PCP if your blood pressure remains at or above 140/90 mm Hg consistently. With a goal of more consistently less than or equal to 130/80 mmHg If you have questions about your blood pressure readings, please contact the office. SIL MADISON MD Apr 23, 2023 09:46
--- NOTE | 2023-04-23 12:04 | Electrophysiology Procedure ---
Electrophysiology Procedure-[facility] AFL RFA Procedure Note-Done in [place] Patient Name: Miguelito Lucio DATE OF PROCEDURE: 04/23/2023 PROCEDURE: --Atrial Flutter RFA/Cavo-Tricuspid (Subeustachian) Isthmus Ablation --Complete EP study with coronary sinus catheter placement and Induction. --Intracardiac 3-D electroanatomic mapping using the Ensite mapping system. --Transvenous catheter mapping performed --SVT Ablation. --Moderate sedation. -- Use of Vascular Ultrasound Guidance for Access -- LA recording and LA pacing and RV recording and His bundle recording BRIEF SUMMARY: Patient presented in sinus rhythm. 3 catheters via the right femoral vein placed via 8.5 Nicaraguan SRO sheath for mapping and ablation catheter; 7 Nicaraguan sheath for 20 pole deflectable candy catheter placed along the lateral wall of the RA; 6 [place]araguan sheath for decapolar deflectable catheter placed in the CS Baseline measurements obtained in sinus rhythm and mapping through the isthmus performed. RF ablation then occurred at approximately 6:00 along the tricuspid annulus during the catheter back via the spot and direct technique to the RA IVC junction. With a few initial passes the catheter would drop with difficulty ablating the edge of the RA near the IVC junction. Therefore the catheter was retroflexed to reach that region better and RF in that area then coming forward resulted in bidirectional conduction block being established. We monitored the patient and reassess. Bidirectional conduction block persisted. Repeat mapping was performed confirming it as well. Patient has a slightly prolonged HV interval of 61 ms but no baseline bundle branch block. We gave boxlike length was at 620 MS and the AH interval prior to block was approximately 300 ms. The patient tolerated the procedure well although he does have restless leg syndrome which made management of the patient's sedation and stability of the catheters, the mapping system, etc. much more difficult. May consider a deeper sedation via anesthesiology if repeat procedure is warranted. Sheaths are being pulled anticipate probable discharge later today. HADOOP ARCHITECT: John Rios M.D. INDICATION FOR PROCEDURE: Recurrent AFL PRESENTING RHYTHM: NORMAL SINUS RHYTHM CONSENT: The risks, benefits, indications and alternatives to the procedure were explained in detail to the patient and available family members prior to the procedure. The patient and available family members expressed a good understanding of the procedure and risks. All questions asked were answered and consent was obtained. SEDATION: The patient was transported to the Electrophysiology Laboratory in a non-sedated state and was placed supine on the fluoroscopy table. The patient underwent moderate sedation using Versed and Fentanyl administered by a trained Registered Nurse who was supervised by me. The patient underwent continuous blood pressure, heart rate and O2 saturation monitoring throughout the procedure with supplemental oxygen utilized as needed. Upon completion of the procedure the patient was returned to a monitored bed in stable condition. ACCESS: The left and right groins were prepped and draped in a sterile fashion. 0.25% Marcaine was injected into the subcutaneous tissue overlying the right femoral vein. The right femoral vein was accessed using the modified Seldinger technique with placement of sheaths and catheters as described below. CATHETERS: Cristae-20 Pole defectable EP catheter inserted via a 7. Nicaraguan sheath in the right femoral vein, advanced to the lateral wall of the right atrium close to the candy teminalis with the distal poles at the low lateral RA and the proximal poles at the high lateral RA. Decapolar deflectable EP catheter inserted via a 6 Nicaraguan sheath in the right femoral vein, advanced to the coronary sinus. Thermacool F- curve ablation catheter inserted via an 8 [place]araguan SRO sheath in the right femoral vein, advanced to the right atrium utilized for mapping and ablation.. One of these catheters was placed at the AV junction intermittently during the procedure. --Cristae-20 Pole deflectable EP catheter inserted via a 7 Nicaraguan sheath in the right femoral vein, advanced to the lateral wall of the right atrium close to the candy terminalis with the distal poles at the low lateral RA and the proximal poles at the high lateral RA. --Decapolar deflectable EP catheter inserted via a 6Fr Nicaraguan sheath in the right femoral vein, advanced to the coronary sinus. --Biosense Cummins quadripolar 3.5mm Thermacool F curve ablation catheter inserted via an 8 [place]araguan SRO sheath in the right femoral vein, advanced to the right atrium utilized for mapping and ablation. ARRHYTHMIAS: -- NONE. NSR only at baseline and post ablation. EP STUDY FINDINGS: ACTIVATION SEQUENCES AND CONDUCTION TIMES: Activation sequences and conduction times were assessed at baseline during NORMAL SINUS RHYTHM from the Low Lateral Right Atrium (LLRA), along the Lateral RA wall (High, Mid, and Low, HLRA, LMRA, LLRA), to the proximal CS (PCS), within the CS and to the His position Post Ablation pacing was performed from the distal cristae catheter (LLRA) or the lateral aspect of the isthmus and from the CS catheter (the septal aspect of the isthmus). The ablation catheter was also place at various positions in the isthmus along the tricuslpid annulus (e.g.0400, 0600,0800,0900). These activation sequences and conduction times demonstrated: TRANS-ISTHMUS CONDUCTION: Pre RFA-Baseline in NSR: -LLRA to PCS or Lateral to Septal Isthmus--133 ms -LLRA to 0600--65ms; to 0400--97 ms -PCS Pacing/Septal to Lateral (LLRA) Isthmus--140 ms -PCS to 0600--78 ms; 0800--112 ms Map 0600 to LLRA was 33 ms Map 0600 to PCS was 71 ms Post RFA in NSR: -LLRA Pacing/Lateral to Septal (PCS) Isthmus: 198 ms -LLRA to 0400--208 ms -PCS Pacing/Septal to Lateral (LLRA) Isthmus:185 ms -PCS to LLRA--185 ms Evidence of Bidirectional Subeustachian Isthmus Conduction Block was Present and persisted post ablation, including after 30 minutes of monitoring. Surface Measurements: -- Initial: NORMAL SINUS RHYTHM with atrial cycle length 995 msec, AK Interval 193 MS; QRS 91 msec, Q-T 459 msec. -- Final: Sinus rhythm, cycle length 986 msec, P-R 201 msec, QRS 97 msec, Q-T 43 6 msec. Sinus Node Function: -- NSR was present at the beginning and completion of the procedure. Atrial Function: Only catheter induced ectopy was present. No atrial flutter. No SVT. AV Samuel Function: A. A-H interval was 97 msec at the completion of the procedure. B. Anterograde AV Wenckebach cycle length was 620 msec at completion of the procedure. C. AH interval prior to Block was ~ 300 ms His Purkinje System Function: A. HV interval at baseline was 61 ms, and post procedure was 52 ms B. No BBB was noted pre or post RFA C. No block below the His was noted MAPPING and ABLATION: The ablation catheter was advanced to the right atrium where mapping was performed using the 3-D Ensite mapping system, as well as with catheters along the lateral wall of the right atrium, in the CS and transiently at the His position, as well at various sites through the isthmus. Conduction was present at baseline through the subeustachian isthmus as expected. Entrainment Mapping was also performed. Ablation of the cava-tricuspid/subeustachian isthmus was performed using a "spot and drag" technique to create a line of RF application beginning at 0600 on the tricuspid annulus and ending at the RA-IVC junction. Lines were also created from 0500. During RF application, pacing from the low septum was performed to assess for the occurrence of conduction block. Additional lines of RF application were done. Upon completion of RF application, bi-directional conduction block was established in the cavotricuspid isthmus. We monitored the patient for an additional 30 minutes and conduction times were reassessed and remained stable. The patient tolerated the procedure well. All mapping demonstrated a Counterclockwise/Clockwise Activation Sequence of the patient's atrial flutter. Ablation of the cava-tricuspid/subeustachian isthmus using the Biosense Cummins irrigated ablation catheter was performed using a spot and drag technique to create a line of RF application beginning at 0600 oclock on the tricuspid annulus and ending at the RA-IVC junction. Lines were also created from 0500 oclock as well. Once Bidirectional Conduction Block was achieved in the cavotricuspid isthmus, we monitored the patient for an additional 20 minutes and conduction times were reassessed and additional programmed stimulation was performed. Conduction times remained stable and bidirectional conduction block persisted The patient tolerated the procedure well. No adverse events were noted at the end of the study. IMPRESSION: --NORMAL SINUS RHYTHM was present at the beginning of the procedure. --Successful cavotricuspid ablation creating bi-directional conduction block. --NORMAL SINUS RHYTHM was present at the conclusion of the procedure. PLAN And DC Instructions: -Pain control as needed -Bedrest 4 hours after sheath removal -We will monitor the patient in the hospital with plans for discharge likely later tonight if groin sites, rhythm, patient, stable. -The patient will continue anticoagulation for at least 4-12 weeks post procedure -STOP AMIODARONE -Continue Anticoagulation with Eliquis -I would consider discontinuation of anticoagulation at 1 to 3 months but given history of atrial fibrillation would consider ILR device implantation to track for any recurrent atrial fibrillation at that time. -Patient to check his pulse once daily for irregularity and/or rapidity and contact our office if it occurs and persists. I have asked him to keep a log including date, once a day HR, regular or irregular--elaborating on skipped beat or AFIB. If they have an Apple Watch or [employer] Mobile device, I have also asked them to check once a day to confirm their rhythm. -On anticoagulation, monitor for any signs or symptoms of bleeding, including blood in the stool or urine, etc and to contact his PMD if any occurs. -Follow up with Dr. Montero or Penny, his LARA in one and 3 mos. -Please refrain from strenuous activity for 1 week(s). -Please contact your doctor if you have any of the following symptoms: difficulty breathing, chest pain, swelling at the groin access site, dizziness, fever or chills -No driving for 1 day -Do not lift more than 20 pounds for 1 week(s). -Monitor groin site for the first week post ablation -Okay to shower tomorrow morning. If there is a dressing in the right groin area can be carefully removed. -Do not submerge/sit with groin sites underwater for 1 week i.e. bathtub, swimming pool, [place], etc. -F.A.S.T. is an easy way to remember the sudden signs of a stroke. F - face drooping A - arm weakness S - speech difficulty T - TIME TO CALL 911 If you person shows any of these signs, even if the signs go away, call [phone] IMMEDIATELY. Check the time so you will know when the first sign started. Traits and lifestyle habits that increase your risk for stroke include: prior stroke/TIA, age, gender, heredity/race, prior heart attack, high blood pressure, cigarette smoking, diabetes mellitus, carotid or other artery disease, atrial fibrillation, heart disease, high cholesterol, poor diet, physical inactivity, obese, excessive alcohol use and sickle cell disease The most common risk factor for a stroke is high blood pressure. Your goal is to keep your blood pressure below 130/80. If you have diabetes, even if treated, you are at an increased risk of stroke. Many people with diabetes also have high blood pressure, high cholesterol or are overweight. Since you are on anticoagulation, monitor for any signs or symptoms of bleeding, including blood in the stool or urine, etc and to contact your Primary Care Physician if any occurs. Check your BP (Blood Pressure) daily and vary the time of day you check it. Try to follow a low salt diet. Exercise helps with your blood pressure. Try to get at least 30 minutes of moderate intensity exercise at least 4 days a week[address] Call Dr. Montero's office or your PCP if your blood pressure remains at or above 140/90 mm Hg consistently. With a goal of more consistently less than or equal to 130/80 mmHg If you have questions about your blood pressure readings, please contact the office. JOHN RIOS MD Apr 23, 2023 12:04
[2023-04-23] MEDS ORDERED: PATIENT MAY USE OWN MEDS, ALL PO SCH (12:15)
[2023-04-23] MEDS ORDERED: NS IV 1000 ML 1,000 ML IV SCH (12:15)
[2023-04-23] MEDS ORDERED: APIXABAN 5 MG (ELIQUIS) TABLET PO SCH (21:00)
== END 2023-04-23 17:15 | disposition home or self-care (01) | DRG 274 ==
LOC: CATH 07:09 → ICU 12:05
PROVIDERS: ADMIT Internal Medicine Cardiovascular Disease; ATTEND Internal Medicine Cardiovascular Disease
PROC: 02583ZZ Destruction of Conduction Mechanism, Percutaneous Approach (ICD-10-PCS; principal; 2023-04-23)
DX: I48.92 Unspecified atrial flutter (principal); I10 Essential (primary) hypertension; E78.5 Hyperlipidemia, unspecified; E66.9 Obesity, unspecified; Z68.29 Body mass index [BMI] 29.0-29.9, adult; I65.23 Occlusion and stenosis of bilateral carotid arteries; G25.81 Restless legs syndrome; I34.0 Nonrheumatic mitral (valve) insufficiency; Z79.01 Long term (current) use of anticoagulants; Z79.899 Other long term (current) drug therapy
CPT/HCPCS: 93005; 93653

== ENCOUNTER 2023-07-25 11:02 | Day surgery (SDC) | payer MEDICARE ==
[~2023-07-25] VITALS: Ht 185.4 cm; Wt 101.0 kg
[~2023-07-25 11:02] MED LIST changes: +ATOR10TA66 PO
[2023-07-25] MEDS ORDERED: LIDOCAINE 1% INJ 20 ML VIAL ONE (11:11)
--- NOTE | 2023-07-25 12:08 | Implantation of Loop Monitor ---
Implant of Loop Monitior IMPLANTATION OF LOOP MONITOR REPORT DATE OF PROCEDURE: 07/25/23 PREOP DIAGNOSIS: Paroxysmal atrial fibrillation POSTOP DIAGNOSIS: Paroxysmal atrial fibrillation PROCEDURE DETAILS: The patient is a 72 male with history of paroxysmal atrial fibrillation requiring long-term surveillance. Therefore implantable loop recorder was discussed and agreed with the patient. Informed consent was taken. All risks and complications were discussed at length. The patient was draped and prepped in the usual sterile fashion. Local anesthesia was lidocaine, which was given in the substernal area close to the 4th intercostal space. Loop monitor Windwardtr[employer] with serial number [id number] was implanted according to the protocol. Steri- Strips were placed at the end of the procedure. There were no complications and the patient tolerated the procedure well. ANESTHESIA: Local anesthesia with lidocaine. COMPLICATIONS: None CONTRAST/FLUOROSCOPY: None CONCLUSION: Successful implantation of loop monitor with no complication FINAL DIAGNOSIS: Paroxysmal atrial fibrillation Palpitation MARIELLA GILL MD Jul 25, 2023 12:08
== END 2023-07-25 12:24 | disposition home or self-care (01) ==
LOC: CATH 11:02
PROVIDERS: ATTEND Internal Medicine Cardiovascular Disease
DX: I48.0 Paroxysmal atrial fibrillation (principal); E66.9 Obesity, unspecified; I10 Essential (primary) hypertension; I65.23 Occlusion and stenosis of bilateral carotid arteries; I34.0 Nonrheumatic mitral (valve) insufficiency; I48.91 Unspecified atrial fibrillation; E78.2 Mixed hyperlipidemia; Z68.29 Body mass index [BMI] 29.0-29.9, adult; Z79.899 Other long term (current) drug therapy; Z79.01 Long term (current) use of anticoagulants
CPT/HCPCS: 33285; C1764